=== PATIENT | male | born 1975 | race Two or more races ===

== ENCOUNTER 2024-05-30 12:14 | Inpatient (IN) ==
--- NOTE | 2024-05-30 12:34 | Emergency Department Note ---
Impression & Plan Cellulitis, Acute hyperglycemia ED Provider Note NAME: MYLENE [id number] SHELBIE AGE: 49 SEX: M : 1975 ARRIVES VIA: Walk-In INFORMANT: Patient, ED PROVIDER(S): Reji Trimble DO CHIEF COMPLAINT: Abscess HPI: Patient is a 49-year-old male who was sent to the emergency department from the [facility] for an evaluation of abscess on the left side of his neck. The patient states his symptoms began several days ago. He was seen at the [facility] by the nursing staff there was sent to the emergency department. He is not currently on any antibiotics. The patient describes significant pain especially under his left ear. There was concern this was moving to his face so he was sent to the emergency department. He was not evaluated by the physician at the [facility]. ROS: See above HPI for pertinent positives & negatives. A total of 6 systems reviewed and were otherwise negative. PAST MEDICAL HISTORY: See Below PAST SURGICAL HISTORY: See Below FAMILY HISTORY: See Below SOCIAL HISTORY: See Below HOME MEDICATIONS: See Below ALLERGIES: See Below VITALS: See Below PHYSICAL EXAMINATION: GENERAL: Patient is awake alert in no acute distress patient is resting comfortably and showing no signs of anxiety EYES: The conjunctivae are clear. The pupils are round and reactive. EARS, NOSE, MOUTH AND THROAT: The nose is without any evidence of any deformity. There is no trismus. NECK: There is swelling and fluctuance noted over the left occipital scalp. No drainage was noted. RESPIRATORY: Normal respiratory effort is noted there is no evidence of wheezing rhonchi or rales CARDIOVASCULAR: Regular rate and rhythm noted there no murmurs rubs or gallops normal S1 normal S2. GASTROINTESTINAL: The abdomen is soft. Abdomen is nontender. MUSCULOSKELETAL/EXTREMITIES: There is no evidence of gross deformity full range of motion is noted in the hips and shoulders. SKIN: There is no obvious evidence of any rash. There are no petechiae, pallor or cyanosis noted. NEUROLOGIC: Patient is awake alert and oriented x3. MEDICAL DECISION MAKING: The patient is a 49-year-old male who presented to the emergency department for an evaluation of swelling in the back of his neck. The patient's history and physical exam appear to be consistent with a large abscess. The patient has a history of diabetes. The patient was found have an elevated white blood cell count as well as elevated blood sugar. I discussed patient's laboratory and radiographic studies with him. Preparations were made to do an incision and drainage however the imaging does appear to be more consistent with a phlegmon as well as cellulitis and rather than an abscess. I do not feel that incision and drainage at this time would be beneficial. Given the patient's elevated white blood cell count I do feel that he would be a better candidate for inpatient management. For this reason I discussed this case with the on-call hospitalist group. Triage Nursing notes reviewed. Prior medical records reviewed Vital Signs: reviewed and remarkable for no significant abnormalities Differential diagnosis: Cellulitis, abscess, MRSA infection, DVT, necrotizing fasciitis, dermatitis, drug eruption, allergic reaction, as well as other pathologies. ER treatment provided: See below Diagnostics interpreted by me: ECG: none Cardiac Monitoring: An order was placed for continuous cardiac monitoring. The monitor shows a rate of 91 bpm with sinus rhythm. Laboratory studies: As stated above and show below. Imaging studies: See below. Radiographic imaging was reviewed by myself Consultation(s): Dr. Pitt who is on for the [facility] hospitalist group was notified about the patient. Past Med/Surg History Problem List (Updated 05/30/24 @ 14:41 by Reji Trimble DO) Acute hyperglycemia (Acute) Cellulitis (Acute) Medical History Diabetes Social History Smoking Status: Never smoker Feels Safe at Home: Yes Home Meds Previous Rx's Medication Instructions Recorded amoxicillin 875 mg-potassium 1 tab PO BID #20 tabs 05/30/24 clavulanate 125 mg tablet Results & Data (ED) Vital Signs Vital Signs - 24 hr 05/30/24 12:16 05/30/24 12:27 05/30/24 13:15 Temperature 36.8 C 36.8 C Temperature Source Temporal Artery Scan Oral Pulse Rate 78 98 H Pulse Rate [Apical] 75 Pulse Rhythm Regular Pulse Rhythm [Apical] Regular Pulse Strength [Apical] Normal Respiratory Rate 20 20 20 Respiratory Effort / Characteristics Non-Labored Spontaneous Respiratory Depth Normal Respiratory Pattern Regular Blood Pressure 136/91 Blood Pressure [Right Arm] 125/85 Blood Pressure Mean 106 Blood Pressure Mean [Right Arm] 98 Blood Pressure Position Sitting Blood Pressure Position [Right Arm] Semi-fowlers Pulse Oximetry 98 96 98 Oxygen Delivery Method Room Air Room Air Room Air Sepsis Recent Fever Within 48 Hours No Sepsis New/Unexplained Change in Mental Status N/A Sepsis Action Taken by Nursing No Action Required 05/30/24 13:55 Temperature Temperature Source Pulse Rate 91 H Pulse Rate [Apical] Pulse Rhythm Pulse Rhythm [Apical] Pulse Strength [Apical] Respiratory Rate Respiratory Effort / Characteristics Respiratory Depth Respiratory Pattern Blood Pressure Blood Pressure [Right Arm] Blood Pressure Mean Blood Pressure Mean [Right Arm] Blood Pressure Position Blood Pressure Position [Right Arm] Pulse Oximetry Oxygen Delivery Method Sepsis Recent Fever Within 48 Hours Sepsis New/Unexplained Change in Mental Status Sepsis Action Taken by Group Home Medications Current Medication List: was personally reviewed by me Laboratory Data Attestation: I reviewed the patient's lab results. 05/30/24 13:52 05/30/24 14:16 Lab Results 05/30/24 05/30/24 05/30/24 Range/Units 13:02 13:52 14:16 WBC Cancelled 17.22 H RBC Cancelled 5.04 Hgb Cancelled 13.9 L Hct Cancelled 42.0 MCV Cancelled 83.3 MCH Cancelled 27.6 MCHC Cancelled 33.1 RDW Std Deviation Cancelled 40.4 RDW Coeff of Jody Cancelled 13.3 Plt Count Cancelled 211 MPV Cancelled 10.9 Immature Gran % (Auto) Cancelled 0.5 Neut % (Auto) Cancelled 75.1 Lymph % (Auto) Cancelled 13.3 Miller % (Auto) Cancelled 9.2 Eos % (Auto) Cancelled 1.6 Baso % (Auto) Cancelled 0.3 Neut # (Auto) Cancelled 12.93 H Lymph # (Auto) Cancelled 2.29 Miller # (Auto) Cancelled 1.59 H Eos # (Auto) Cancelled 0.28 Baso # (Auto) Cancelled 0.05 Immature Gran # (Auto) Cancelled 0.08 Absolute Nucleated RBC Cancelled Nucleated RBC % (auto) Cancelled Neutrophils % (Manual) Cancelled Band Neutrophils % Cancelled Lymphocytes % (Manual) Cancelled Prolymphocyte % Cancelled Reactive Lymphs % (Man) Cancelled Monocytes % (Manual) Cancelled Eosinophils % (Manual) Cancelled Basophils % (Manual) Cancelled Metamyelocytes % (Man) Cancelled Myelocytes % (Man) Cancelled Promyelocytes % (Man) Cancelled Blast Cells % (Manual) Cancelled Plasma Cell % (Manual) Cancelled Other Cells % Cancelled Nucleated RBC % Cancelled Neutrophils # (Manual) Cancelled Band Neutrophils # Cancelled Total Absolute Neuts Cancelled Lymphocytes # (Manual) Cancelled Prolymphocyte # Cancelled Reactive Lymphs # Cancelled Total Abs Lymphocytes Cancelled Monocytes # (Manual) Cancelled Eosinophils # (Manual) Cancelled Basophils # (Manual) Cancelled Metamyelocytes # (Man) Cancelled Myelocytes # (Manual) Cancelled Promyelocytes # (Man) Cancelled Blast Cells # (Man) Cancelled Plasma Cell # (Manual) Cancelled Other Cells # Cancelled Nucleated RBCs # (Man) Cancelled Hypersegmented Neuts Cancelled Hyposegmented Neuts Cancelled Hypogranular Neuts Cancelled Large Granular Lymphs Cancelled # Lrg Granular Lymphs Cancelled Hairy Cells Cancelled Smudge Cells Cancelled Toxic Granulation Cancelled Toxic Vacuolation Cancelled Dohle Bodies Cancelled Abhishek Rods Cancelled Platelet Estimate Cancelled Hypogranular Platelets Cancelled Giant Platelets Cancelled Platelet Satelliting Cancelled RBC Morphology Cancelled Polychromasia Cancelled Hypochromasia Cancelled Poikilocytosis Cancelled Basophilic Stippling Cancelled Anisocytosis Cancelled Microcytosis Cancelled Macrocytosis Cancelled Spherocytes Cancelled Pappenheimer Bodies Cancelled Sickle Cells Cancelled Target Cells Cancelled Tear Drop Cells Cancelled Ovalocytes Cancelled Stomatocytes Cancelled [place] Bodies Cancelled Echinocytes Cancelled Acanthocytes (Spur) Cancelled Rouleaux Cancelled RBC Agglutinates Cancelled Schistocytes Cancelled Sezary Cell Cancelled Sodium 133 L (136-145) mmol/L Potassium TNP 4.8 Chloride 102 (98-107) mmol/L Carbon Dioxide 22 (21-32) mmol/L Anion Gap 9 (3-11) BUN 16 (6-23) mg/dl Creatinine 0.75 (0.6-1.4) mg/dl Est Cr Clr Drug Dosing 135.1 ml/min eGFR 109.26 BUN/Creatinine Ratio 21.3 H (10-20) Glucose 340 H* (70-99(Fasting)) mg/dl Calcium 8.7 (8.6-10.3) mg/dl Total Bilirubin 0.8 (0.2-1.0) mg/dl AST TNP 17 ALT 21 (7-52) U/L Alkaline Phosphatase 52 (34-104) U/L Total Protein 6.8 (6.0-8.3) gm/dl Albumin 3.6 (3.4-5.0) gm/dl Globulin 3.2 (2.5-4.0) gm/dl Albumin/Globulin Ratio 1.1 (0.9-2) Blood Parasites ID Cancelled Administered Medications Morphine Sulfate (Morphine Sulfate 4 Mg/Ml 1 Ml Carp\Vial) 4 mg IV Q15M PRN PRN Reason: Pain Stop: 06/13/24 12:26 Last Admin: 05/30/24 13:18 Dose: 4 mg Documented By: MO Discontinued Medications Ampicillin Sodium/Sulbactam Sodium (Unasyn) 3,000 mg in 100 mls @ 200 mls/hr IV NOW STA Stop: 05/30/24 12:56 Last Admin: 05/30/24 13:53 Dose: 200 mls/hr Documented By: MO Ondansetron HCl (Ondansetron Inj 2 Mg/Ml 2 Ml Vial) 4 mg IV NOW STA Stop: 05/30/24 12:28 Last Admin: 05/30/24 13:18 Dose: 4 mg Documented By: MO Imaging Data Attestation: I personally reviewed and interpreted this imaging study as follows: My Impression: CT soft tissue neck was done without contrast. My interpretation is significant swelling in the left occipital region, no air-fluid level was noted, final report below. Radiologist's Impression: Soft Tissue Neck CT 05/30/24 12:27 CT soft tissue neck wo con HISTORY: 49 years-old Male left posterior swelling acute pain and swelling of the neck COMPARISON: None TECHNIQUE: Multiple axial CT images of the soft tissues of the neck were obtained without IV contrast A dose lowering technique was used consistent with the principals of DEREJE. FINDINGS: Limited exam without IV contrast. Lung apices are clear. No pneumothorax. Subcentimeter cervical chain and left supraclavicular lymph nodes measure up to 7 mm, likely reactive. There is moderate subcutaneous edema and skin thickening within the left posterior mid neck with focal area of probable phlegmon measuring 6 mm image 253. No discrete abscess. No intramuscular extension. Multilevel changes of the cervical spine. Patent airway. Moderate polypoid mucosal thickening within the left maxillary sinus. Mastoid air cells are clear. The imaged intracranial structures demonstrate no acute abnormality. IMPRESSION: 1. Prominent cellulitis with probable phlegmon within the left posterior neck. No abscess identified at this time. 2. Subcentimeter cervical chain and supraclavicular lymph nodes are likely reactive. Attention on follow-up recommended. 3. Moderate polypoid mucosal thickening of the left maxillary sinus. ACT 112: Negative or not required by law. The above report was generated using voice recognition software. It may contain grammatical, syntax or spelling errors. Electronically signed by: Yunior Dempsey M.D. 05/30/2024 2:34 PM Discharge Plan Visit Data Chief Complaint: Skin Problem Stated Complaint: ABCESS ON NECK ED Provider: Reji Trimble Discharge Problem: Cellulitis, Acute hyperglycemia Patient Disposition: Being Evaluated by Hospitalist Forms Stand Alone Forms: Risk Ident Prescriptions Prescriptions: New amoxicillin-pot clavulanate 875-125 mg tablet 1 tab PO BID Qty: 20 0RF Referrals Referrals: PCP,NO [Physician] - Discharge Problem: Cellulitis Qualifiers: Site of cellulitis: neck Qualified Code(s): L03.221 - Cellulitis of neck
[2024-05-30] MEDS: ONDANSETRON INJ 2 MG/ML 2 ML VIAL IV STA (13:18)
[2024-05-30] MEDS: MoRPHine SULFATE 4 MG/ML 1 ML CARP\\VIAL IV PRN (13:18)
[2024-05-30] MEDS: AMPICILLIN/SULBACTAM SOD 3,000 MG/100 ML BAG IV STA (13:53)
[2024-05-30 13:57] LABS: Alanine Aminotransferase 21 U/L (7-52); Albumin Globulin Ratio 1.1 (0.9-2); Albumin Level 3.6 gm/dl (3.4-5.0); Alkaline Phosphatase 52 U/L (34-104); Anion Gap 9 (3-11); BUN Creatinine Ratio 21.3 (10-20); Bilirubin,Total 0.8 mg/dl (0.2-1.0); Blood Urea Nitrogen 16 mg/dl (6-23); Calcium 8.7 mg/dl (8.6-10.3); Carbon Dioxide 22 mmol/L (21-32); Chloride 102 mmol/L (98-107); Creatinine Clr Calc Pharmacy 135.1 ml/min; Globulin 3.2 gm/dl (2.5-4.0); Glucose 340 mg/dl (70-99(Fasting)); Sodium 133 mmol/L (136-145); Total Protein 6.8 gm/dl (6.0-8.3)
[2024-05-30 14:10] LABS: Basophils # (auto) 0.05 K/uL (0.00-0.20); Basophils % (auto) 0.3 %; Eosinophils # (auto) 0.28 K/uL (0.00-0.50); Eosinophils % (auto) 1.6 %; Hemoglobin 13.9 g/dl (14.0-18.0); Immature Granulocytes # (auto) 0.08 K/uL (0.01-0.20); Immature Granulocytes % (auto) 0.5 %; Lymphocytes # (auto) 2.29 K/uL (1.20-3.40); Lymphocytes % (auto) 13.3 %; Mean Corpuscular Hemoglobin 27.6 pg (25.0-34.0); Mean Corpuscular Hgb Conc 33.1 g/dL (32.0-36.0); Mean Corpuscular Volume 83.3 fL (80.0-100.0); Mean Platelet Volume 10.9 fL (9.4-12.4); Monocytes # (auto) 1.59 K/uL (0.11-0.59); Monocytes % (auto) 9.2 %; Neutrophils # (auto) 12.93 K/uL (1.40-6.50); Neutrophils % (auto) 75.1 %; Platelet Count 211 K/uL (130-400); RDW Coefficient of Variation 13.3 % (11.5-14.5); RDW Standard Deviation 40.4 fL (36.4-46.3); Red Blood Count 5.04 M/uL (4.70-6.10); White Blood Count 17.22 K/ul (4.8-10.8)
--- NOTE | 2024-05-30 14:35 | CT Scan Report ---
CT soft tissue neck wo con HISTORY: 49 years-old Male left posterior swelling acute pain and swelling of the neck COMPARISON: None TECHNIQUE: Multiple axial CT images of the soft tissues of the neck were obtained without IV contrast A dose lowering technique was used consistent with the principals of DEREJE. FINDINGS: Limited exam without IV contrast. Lung apices are clear. No pneumothorax. Subcentimeter cervical kwasi n and left supraclavicular lymph nodes measure up to 7 mm, likely reactive. There is moderate subcuta neous edema and skin thickening within the left posterior mid neck with focal area of probable phlegm on measuring 6 mm image 253. No discrete abscess. No intramuscular extension. Multilevel changes of the cervical spine. Patent airway. Moderate polypoid mucosal thickening within the left maxillary sinus. Mastoid air cells are clear. The imaged intracranial structures demonstrate no acute abnormality. IMPRESSION: 1. Prominent cellulitis with probable phlegmon within the left posterior neck. No abscess identified at this time. 2. Subcentimeter cervical chain and supraclavicular lymph nodes are likely reactive. Attention on fol low-up recommended. 3. Moderate polypoid mucosal thickening of the left maxillary sinus. ACT 112: Negative or not required by law. The above report was generated using voice recognition software. It may contain grammatical, syntax o r spelling errors. Electronically signed by: Yunior Dempsey M.D. 05/30/2024 2:34 PM
[2024-05-30] MEDS ORDERED: VANCOMYCIN HCL 2,250 MG in DEXTROSE 5% 500 ML IV ONE (14:44)
[2024-05-30] MEDS ORDERED: VANCOMYCIN CONSULT ACTIVE PRN (14:44)
[2024-05-30 14:47] LABS: Potassium 4.8 mmol/L (3.5-5.1)
[2024-05-30] MEDS: LIDOCAINE 1% LOCAL 20 ML VIAL INFIL ONE (15:13)
--- NOTE | 2024-05-30 15:32 | History & Physical Report ---
Date of Service May 30, 2024 Assessment & Plan (1) Cellulitis: (2) Sepsis: (3) Type 2 diabetes mellitus: (4) HTN (hypertension): (5) HLD (hyperlipidemia): (6) CAD (coronary artery disease): (7) Acute hyperglycemia: Plan 49 year old male with h/o HTN, HLD, CAD, and type 2 diabetes presenting with painful swelling of left posterior neck. #Sepsis/Cellulitis: WBC count 17, HR 98 on admission with presumed source being skin/soft tissue infection. Afebrile, hemodynamically stable. Blood cultures pending CT neck soft tissue with prominent cellulitis with probable phlegmon within the left posterior neck. No abscess identified. Continue IV Vancomycin. MRSA nasal swab pending - if negative, consider transition to Unasyn. If failing to improve with IV antibiotics, consider repeat imaging to assess for drainable lesion. Scheduled Tylenol 1g TID, PRN IV morphine for pain control AM labs: CBC, BMP #T2DM: BSG 340 on admission - will recheck BSG and correct accordingly with one time dose of Novolog Blood sugar check ACHS Hold Metformin Lantus 21 units BID Sliding scale Novolog Chronic Stable Problems: HLD: continue home rosuvastatin HTN: continue home Lisinopril CAD: continue home aspirin, Eliquis. Pt reports Eliquis was started after stent placement, rationale unclear. Dispo: admit for obs to med-surg FEN/GI: HH,CC diet VTE ppx: Eliquis Full Code History of Present Illness Primary Care Provider: CASS Harp 49 year old male with h/o HTN, HLD, CAD, and type 2 diabetes presenting with painful swelling of left posterior neck. First noticed small, focal area of swelling last , 05/25. Since then, lesion has progressively enlarged and has also become more painful. Patient notes that at one point, lesion spontaneously drained a small amount of blood but no pus noted. Patient was seen by nurse at [facility] this morning, recommended evaluation in ED. Denies antecedent open skin lesion. Denies fevers/chills. Denies difficulty swallowing. ED Course: WBC count 17, HR [address] on admission. Lactate negative. CT neck soft tissue with prominent cellulitis with probable phlegmon within the left posterior neck. No abscess identified. Patient given one dose of Unasyn. Allergies Allergy/AdvReac Type Severity Reaction Status Date / Time shellfish derived Allergy Hives Verified 05/30/24 16:56 Home Medications Medication Instructions Recorded Confirmed Type amoxicillin 875 mg-potassium 1 tab PO BID #20 tabs 05/30/24 Rx clavulanate 125 mg tablet apixaban 5 mg tablet (Eliquis) 5 mg PO BID 05/30/24 05/30/24 History aspirin 81 mg tablet 81 mg PO DAILY 05/30/24 05/30/24 History celecoxib 200 mg capsule 200 mg PO BID 05/30/24 05/30/24 History lisinopril 2.5 mg tablet 2.5 mg PO DAILY 05/30/24 05/30/24 History metformin 500 mg tablet 500 mg PO BID 05/30/24 05/30/24 History rosuvastatin 5 mg tablet 5 mg PO DAILY 05/30/24 05/30/24 History Past Med/Surg History Problem List (Updated 05/30/24 @ 16:56 by Karsten Chris DO) Sepsis Acute hyperglycemia (Acute) Cellulitis (Acute) Medical History (Updated 05/30/24 @ 16:56 by Karsten Chris DO) CAD (coronary artery disease) HLD (hyperlipidemia) HTN (hypertension) Type 2 diabetes mellitus Diabetes Social History Smoking Status: Never smoker Hx Alcohol Use: No Hx Substance Use: No Preferred Language: Lao Communication Ability: 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 No acute distress Cardiac: Regular rate and rhythm, no murmurs appreciated Respiratory: Lungs clear to auscultation bilaterally, No increased work of breathing Skin: Left posterolateral neck with mildly erythematous, well circumscribed area of swelling extending from angle of mandible to lateral border of cervical paraspinals. Very tender to palpation, small scab at site of previous drainage but no active drainage. Results & Data Results & Data Vital Signs (Past 12 Hours) Vital Signs Temp Pulse Pulse Resp BP BP Pulse Ox 05/30/24 15:00 36.7 C 90 16 138/99 98 05/30/24 13:55 91 H 05/30/24 13:15 36.8 C 75 20 125/85 98 05/30/24 12:27 98 H 20 96 05/30/24 12:16 36.8 C 78 20 136/91 98 O2 Del Method 05/30/24 15:00 Room Air 05/30/24 13:55 05/30/24 13:15 Room Air 05/30/24 12:27 Room Air 05/30/24 12:16 Room Air Supervising Physician Co-Signing Physician Notes I personally saw and examined the patient. I independently reviewed the labs, EKG, imaging, problem list, medication list, past medical history and family history. I verified all van points and agree with resident physician Dr Karsten Chris DO with the following exceptions and/or additions: 49 year old male presents to the ER with fever, chills left sided neck erythema, swelling and pain. O/E HS RRR, no murmurs, Chest CTAB, Abdo SNT, erythema and swelling on left side of neck without fluctuant area A/P Sepsis/cellulitis - Lactate 1.5, no hypotension therefore does not meet criteria for 30ml/kg IV fluids, Continue Vancomycin and Unasyn Resident Activity Tracking Resident Involvement: Resident Care Provided Care Provided: Adult Hospital Medicine (1) Cellulitis Site of cellulitis: neck Qualified Code(s): L03.221 - Cellulitis of neck
[2024-05-30] MEDS: VANCOMYCIN HCL 2,250 MG in SODIUM CHLORIDE 0.9% 500 ML IV STA (15:42)
[2024-05-30] MEDS ORDERED: DEXTROSE 50% 50 ML SYRINGE IV PRN (18:26)
[2024-05-30] MEDS ORDERED: GLUCOSE 40% GEL 15 GM TUBE PO PRN (18:26)
[2024-05-30] MEDS ORDERED: GLUCOSE 10 TAB/TUBE PO PRN (18:26)
[2024-05-30] MEDS ORDERED: CARBOHYDRATES FOR HYPOGLYCEMIA PO PRN (18:26)
[2024-05-30] MEDS ORDERED: GLUCAGON FOR INJ 1 MG VIAL SQ PRN (18:26)
[2024-05-30] MEDS ORDERED: ALUMINUM/MAGNESIUM SUSP 30 ML UDC PO PRN (18:26)
[2024-05-30] MEDS: INSULIN ASPART PER UNIT CHARGE SC STA (19:19)
[2024-05-30] MEDS: MoRPHine SULFATE 2 MG/ML CARP IV PRN (19:25)
[2024-05-30] MEDS: INSULIN ASPART PER UNIT CHARGE SC SCH (19:27)
[2024-05-30] MEDS: ACETAMINOPHEN 500 MG TAB PO SCH (20:18)
[2024-05-30] MEDS: APIXABAN 5 MG TABLET PO SCH (20:18)
[2024-05-30] MEDS ORDERED: Nursing to Pharmacy Communication SCH (21:30)
[2024-05-30] MEDS: Patient's ALLERGY Info needs ENTERED SCH (22:22)
[2024-05-30] MEDS: LANTUS PER UNIT CHARGE SQ SCH (23:01)
[2024-05-30] MEDS: VANCOMYCIN 1,250mg in D5W 250mL (Use w/ NSS Shortage) IV SCH (23:39)
--- NOTE | 2024-05-31 07:25 | Hospitalist Progress Note ---
Date of Service May 31, 2024 Assessment & Plan (1) Sepsis: Plan: 49 year old male with h/o HTN, HLD, CAD, and type 2 diabetes presenting with painful swelling of left posterior neck. Sepsis/Cellulitis present on admission: source being skin/soft tissue infection. CT neck soft tissue with prominent cellulitis with probable phlegmon within the left posterior neck. No abscess identified. Continue IV Vancomycin. exam is tense and painful, pt is diaphoretic, blood cx negative, will re image 06/01/24 (2) Type 2 diabetes mellitus: Plan: T2DM: uncontrolled on admission Blood sugar check ACHS Hold Metformin Lantus 25 units BID tighten Sliding scale Novolog (3) CAD (coronary artery disease): Plan: continue home aspirin, Eliquis. Pt reports Eliquis was started after stent placement, rationale unclear. persistently tachycardic, ecg is sinus tach, tsh reviewed and normal, mag is low will augment Plan HLD: continue home rosuvastatin HTN: continue home Lisinopril CAD: Dispo: admit for obs to med-surg FEN/GI: HH,CC diet VTE ppx: Eliquis Full Code Admission and Anticipated Discharge Date Admission Date: May 30, 2024 Results & Data Results & Data Vital Signs (Past 12 Hours) Vital Signs Temp Pulse BP 05/30/24 21:36 99.1 F 128 H 115/76 Laboratory Results review cbc review poc glucose adjusted insulin PG Care Time/CCT Total # of Minutes Spent Total Time Spent with Patient: Total time spent is greater than 50% in coordination of care (as documented) at patient's floor/unit and/or counseling patient: Coding Level of Care Code 15841 SUB INP/OBS CARE 3/50MIN Diagnoses Sepsis A41.9 Type 2 diabetes mellitus E11.9 CAD (coronary artery disease) I25.10
[2024-05-31] MEDS: ASPIRIN 81 MG ECTAB PO SCH (07:38)
[2024-05-31 07:40] LABS: BUN Creatinine Ratio 13.4 (10-20); Calcium 8.7 mg/dl (8.6-10.3); Creatinine Clr Calc Pharmacy 104.4 ml/min; Potassium 4.2 mmol/L (3.5-5.1)
[2024-05-31 07:42] LABS: Hematocrit (blood only) 41.7 % (42.0-52.0); Hemoglobin 13.9 g/dl (14.0-18.0); Mean Corpuscular Hemoglobin 27.6 pg (25.0-34.0); Mean Corpuscular Hgb Conc 33.3 g/dL (32.0-36.0); Mean Corpuscular Volume 82.9 fL (80.0-100.0); Mean Platelet Volume 10.8 fL (9.4-12.4); Platelet Count 243 K/uL (130-400); RDW Coefficient of Variation 13.2 % (11.5-14.5); RDW Standard Deviation 40.1 fL (36.4-46.3); Red Blood Count 5.03 M/uL (4.70-6.10); White Blood Count 19.94 K/ul (4.8-10.8)
[2024-05-31 08:08] LABS: Magnesium 1.6 mg/dl (1.7-2.4)
[2024-05-31 08:23] LABS: Thyroid Stimulating Hormone 0.841 uIu/ml (0.300-4.500)
[2024-05-31] MEDS: ROSUVASTATIN CALCIUM 5 MG TAB PO SCH (10:48)
[2024-05-31] MEDS: lisinopril 2.5 MG TAB PO SCH (10:48)
--- NOTE | 2024-05-31 10:57 | Pharmacy Report ---
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 * Pertinent microbiologic data includes: Negative MRSA Nasal Swab, blood cx pending Plan Vancomycin * Loading dose: 2250 mg IV x 1 * Maintenance dose: 1250 mg IV every 8 hours * Regimen is predicted to achieve target AUC/RILEY of 400-600 mg/L.hr * May need to reduce dose once at steady state, as predicted AUC slightly above target * Trough level ordered for tomorrow morning, which should reflect steady state Pharmacy will continue to follow and will adjust dose/frequency as necessary. Thank you. Pharmacy has transitioned to AUC monitoring for vancomycin. AUC/RILEY is the preferred PK/PD target and is associated with decreased risk of nephrotoxicity compared to traditional trough targets.
--- NOTE | 2024-05-31 11:55 | Billing Data ---
Date of Service May 30, 2024 Coding Level of Care Code 16718 INT INP/OBS CARE
--- NOTE | 2024-05-31 15:38 | Electrocardiogram Report ---
Test Reason : Blood Pressure : */* mmHG Vent. Rate : 107 BPM Atrial Rate : 107 BPM P-R Int : 122 ms QRS Dur : 72 ms QT Int : 318 ms P-R-T Axes : 30 3 79 degrees QTcB Int : 424 ms Sinus tachycardia Possible Left atrial enlargement Inferior infarct , age undetermined Anterolateral infarct , age undetermined Abnormal ECG No previous ECGs available Confirmed by Reji Maza ([id number]) on 05/31/2024 3:38:30 PM Referred By: Loyd ODELL Confirmed By: Reji Maza
[2024-05-31] MEDS: ONDANSETRON INJ 2 MG/ML 2 ML VIAL IV STA (17:24)
[2024-05-31] MEDS: MAGNESIUM SULFATE / D5W 1 GM/100 ML BAG IV SCH (17:24)
[2024-05-31] MEDS ORDERED: ONDANSETRON INJ 2 MG/ML 2 ML VIAL IV PRN (18:46)
[2024-05-31] MEDS: CEFEPIME 2000MG 2,000 MG/20 ML SYR IV SCH (20:20)
[2024-05-31] MEDS: LANTUS PER UNIT CHARGE SQ SCH (20:27)
[2024-06-01 07:41] LABS: Hematocrit (blood only) 42.2 % (42.0-52.0); Hemoglobin 14.1 g/dl (14.0-18.0); Mean Corpuscular Hemoglobin 27.4 pg (25.0-34.0); Mean Corpuscular Hgb Conc 33.4 g/dL (32.0-36.0); Mean Corpuscular Volume 82.1 fL (80.0-100.0); Mean Platelet Volume 10.2 fL (9.4-12.4); Platelet Count 269 K/uL (130-400); RDW Coefficient of Variation 13.1 % (11.5-14.5); RDW Standard Deviation 39.5 fL (36.4-46.3); Red Blood Count 5.14 M/uL (4.70-6.10); White Blood Count 18.29 K/ul (4.8-10.8)
[2024-06-01 07:59] LABS: BUN Creatinine Ratio 18.9 (10-20); C Reactive Protein 29.54 mg/dl (0-0.5); Creatinine Clr Calc Pharmacy 106.6 ml/min; Potassium 4.4 mmol/L (3.5-5.1)
[2024-06-01] MEDS: VANCOMYCIN LEVEL ONE (08:54)
[2024-06-01] MEDS: VANCOMYCIN IV SCH (10:20)
[2024-06-01] MEDS: D5W IV SCH (10:20)
--- NOTE | 2024-06-01 10:44 | CT Scan Report ---
CT soft tissue neck wo con HISTORY: 49 years-old Male eval for organized abscess acute neck pain with dysphasia COMPARISON: 05/30/2024 TECHNIQUE: Multiple axial CT images of the soft tissues of the neck were obtained without IV contrast . A dose lowering technique was used consistent with the principals of DEREJE. FINDINGS: Limited exam without IV contrast. Lung apices are clear. No pneumothorax. Subcentimeter cervical kwasi n and left supraclavicular lymph nodes measure up to 7 mm, likely reactive. There is moderate subcuta neous edema and skin thickening within the left posterior mid neck with focal area of probable phlegm on measuring approximately 7.5 x 2.8 cm, previously 6.0 x 2.7 cm. No drainable abscess. No intramuscu lar extension. Progressive subcutaneous edema extension into the left supraclavicular tissues. Multilevel degenerative changes of the cervical spine. Patent airway. Moderate polypoid mucosal thick ening within the left maxillary sinus. Mastoid air cells are clear. The imaged intracranial structure s demonstrate no acute abnormality IMPRESSION: 1. Progressive cellulitis with mild worsening of the phlegmon within the left posterior neck. No absc ess identified at this time. Rather than serial CT examinations for follow-up, ultrasound is recommen ded to assess for possible future development of an abscess. 2. Subcentimeter cervical chain and supraclavicular lymph nodes are likely reactive. Attention on fol low-up recommended. 3. Moderate polypoid mucosal thickening of the left maxillary sinus. ACT 112: Negative or not required by law. The above report was generated using voice recognition software. It may contain grammatical, syntax o r spelling errors. Electronically signed by: Yunior Dempsey M.D. 06/01/2024 10:43 AM
--- NOTE | 2024-06-01 14:51 | Pharmacy Report ---
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 * Pertinent microbiologic data includes: Negative MRSA Nasal Swab, blood cx pending Plan Vancomycin * Maintenance dose: Increase to vancomycin 2250mg IV q12h * q12h regimen selected rather than q8h regimen in an effort to conserve IV fluids in the setting of shortage * Regimen is predicted to achieve target AUC/RILEY of 400-600 mg/L.hr * Will check another vanc level in 1-2 days if pt remains hospitalized Pharmacy will continue to follow and will adjust dose/frequency as necessary. Thank you. Pharmacy has transitioned to AUC monitoring for vancomycin. AUC/RILEY is the preferred PK/PD target and is associated with decreased risk of nephrotoxicity compared to traditional trough targets.
--- NOTE | 2024-06-01 15:47 | Hospitalist Progress Note ---
Date of Service June 01, 2024 Assessment & Plan (1) Sepsis: Plan: 49 year old male with h/o HTN, HLD, CAD, and type 2 diabetes presenting with painful swelling of left posterior neck. Sepsis/Cellulitis present on admission: source being skin/soft tissue infection. CT neck soft tissue with prominent cellulitis with probable phlegmon within the left posterior neck. No abscess identified. Continue IV Vancomycin/cefepime. exam is tense and painful, ourulnece cultured, pt is diaphoretic, blood cx negative, re image 06/01/24 phlegmon npo hold anticoagulation ENT consult on 06/02/24 (2) Type 2 diabetes mellitus: Plan: T2DM: uncontrolled state continues Blood sugar check ACHS Hold Metformin Lantus increase to 30 units BID tighten Sliding scale Novolog, one dose of NPH (3) CAD (coronary artery disease): Plan: continue home aspirin, Eliquis. Pt reports Eliquis was started after stent placement, rationale unclear. persistently tachycardic, ecg is sinus tach, tsh reviewed and normal, mag is low will augment Plan HLD: continue home rosuvastatin HTN: continue home Lisinopril CAD: Dispo: admit for obs to med-surg FEN/GI: HH,CC diet VTE ppx: Eliquis Full Code Admission and Anticipated Discharge Date Admission Date: May 30, 2024 Subjective pt is not feeling well, swelling has pointed and is draining a thick white yellow non malodorous material, this was cultured this maybe sebaceous cyst although is high on neck near hairline Physical Exam Physical Exam: firm dense tense area on left posterior neck, high up to start of hair line expressed purulence Results & Data Results & Data Vital Signs (Past 12 Hours) Vital Signs Temp Pulse Resp BP BP Pulse Ox O2 Del Method 06/01/24 14:43 98.6 F 108 H 17 143/84 H 94 Room Air 06/01/24 08:30 112 H 18 112/78 93 Room Air 06/01/24 07:19 99.0 F 103 H 17 124/84 94 Room Air Laboratory Results review cbc review chemistry review poc glucose, poor control PG Care Time/CCT Total # of Minutes Spent Total Time Spent with Patient: Total time spent is greater than 50% in coordination of care (as documented) at patient's floor/unit and/or counseling patient: Coding Level of Care Code 70988 SUB INP/OBS CARE 50MIN Diagnoses Sepsis A41.9 Type 2 diabetes mellitus E11.9 CAD (coronary artery disease) I25.10
[2024-06-01] MEDS: MAGNESIUM HYDROXIDE SUSP 30 ML UDC PO PRN (17:05)
[2024-06-01] MEDS: NovoLIN-N (NPH) PER UNIT CHARGE SQ ONE (17:06)
[2024-06-01] MEDS: POLYETHYLENE (MIRALAX) 17 GM PACK PO PRN (21:23)
[2024-06-02 07:23] LABS: C Reactive Protein 17.33 mg/dl (0-0.5)
[2024-06-02 11:30] LABS: Creatinine Clr Calc Pharmacy 117.8 ml/min
--- NOTE | 2024-06-02 16:51 | Hospitalist Progress Note ---
Date of Service June 02, 2024 Assessment & Plan (1) Sepsis: Plan: 49 year old male with h/o HTN, HLD, CAD, and type 2 diabetes presenting with painful swelling of left posterior neck. Sepsis/Cellulitis present on admission: source being skin/soft tissue infection. CT neck soft tissue with prominent cellulitis with probable phlegmon within the left posterior neck. No abscess identified. Continue IV Vancomycin/cefepime. exam is tense and painful, purulence cultured inintial gram stain is Gr +, blood cx negative, re image 06/01/24 phlegmon npo hold anticoagulation ENT consult on 06/02/24 (2) Type 2 diabetes mellitus: Plan: T2DM: uncontrolled state continues Blood sugar check ACHS Holding Metformin Lantus increase to 30 units BID tighten Sliding scale Novolog, (3) CAD (coronary artery disease): Plan: continue home aspirin, Eliquis. Pt reports Eliquis was started after stent placement, rationale unclear. persistently tachycardic, ecg is sinus tach, tsh reviewed and normal, mag is low will augment Plan HLD: continue home rosuvastatin HTN: continue home Lisinopril VTE ppx: Eliquis Full Code Admission and Anticipated Discharge Date Admission Date: June 01, 2024 Subjective pt with drainage from neck abscess, spoke to ENT, no immediate need for surgery as is improving, will continue to follow pt feels less ill but still with significant neck pain and swelling Physical Exam Physical Exam: firm dense tense area on left posterior neck, high up to start of hair line expressed purulence continues less reddened and swollen Results & Data Results & Data Vital Signs (Past 12 Hours) Vital Signs Temp Pulse Resp BP BP Pulse Ox O2 Del Method 06/02/24 15:28 97.9 F 101 H 18 121/86 94 Room Air 06/02/24 07:22 99.0 F 98 H 18 129/83 95 Room Air Laboratory Results review Cr review poc glucose-> still poor control will tighten scale PG Care Time/CCT Total # of Minutes Spent Total Time Spent with Patient: Total time spent is greater than 50% in coordination of care (as documented) at patient's floor/unit and/or counseling patient: Coding Level of Care Code 49109 SUB INP/OBS CARE 3/50MIN Diagnoses Sepsis A41.9 Type 2 diabetes mellitus E11.9 CAD (coronary artery disease) I25.10
[2024-06-02] MEDS: LANTUS PER UNIT CHARGE SQ SCH (21:01)
[2024-06-03 08:00] LABS: Hematocrit (blood only) 44.6 % (42.0-52.0); Hemoglobin 14.7 g/dl (14.0-18.0); Mean Corpuscular Hemoglobin 27.4 pg (25.0-34.0); Mean Corpuscular Volume 83.1 fL (80.0-100.0); Mean Platelet Volume 9.6 fL (9.4-12.4); Platelet Count 305 K/uL (130-400); RDW Coefficient of Variation 13.2 % (11.5-14.5); Red Blood Count 5.37 M/uL (4.70-6.10); White Blood Count 12.02 K/ul (4.8-10.8)
[2024-06-03] MEDS: VANCOMYCIN LEVEL ONE (08:07)
[2024-06-03 08:20] LABS: BUN Creatinine Ratio 27.3 (10-20); C Reactive Protein 9.34 mg/dl (0-0.5); Calcium 9.2 mg/dl (8.6-10.3); Creatinine Clr Calc Pharmacy 153.5 ml/min; Potassium 4.4 mmol/L (3.5-5.1)
[2024-06-03] MEDS: LANTUS PER UNIT CHARGE SQ SCH (09:05)
--- NOTE | 2024-06-03 09:28 | Pharmacy Report ---
Pharmacy PK ABX Note - Date of Service June 03, 2024 - Assessment and Plan Assessment 06/03: * Continues on vancomycin/cefepime (day#5 vancomycin). Renal function stable. 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 * Pertinent microbiologic data includes: Negative MRSA Nasal Swab, blood cx pending Plan Vancomycin * Current regimen: vancomycin 2250mg IV q12h * Trough level this AM (~12h level), 15.4mcg/mL. Predicted to achieve ssAUC 531mg/L.hr- therapeutic. * Continue current regimen - repeat level in ~ 48h Pharmacy will continue to follow and will adjust dose/frequency as necessary. Thank you. Pharmacy has transitioned to AUC monitoring for vancomycin. AUC/RILEY is the preferred PK/PD target and is associated with decreased risk of nephrotoxicity compared to traditional trough targets.
--- NOTE | 2024-06-03 16:39 | Hospitalist Progress Note ---
Date of Service June 03, 2024 Assessment & Plan (1) Sepsis: Plan: 49 year old male with h/o HTN, HLD, CAD, and type 2 diabetes presenting with painful swelling of left posterior neck. Sepsis/Cellulitis present on admission: source being skin/soft tissue infection. CT neck soft tissue with prominent cellulitis with probable phlegmon within the left posterior neck. No abscess identified. Continue IV Vancomycin/cefepime. exam is less tense and painful, purulence cultured initial gram stain is Gr + mrsa sensitivities pending , blood cx negative, re image 06/01/24 phlegmon no abscess infiltration of vancomycin, elevated ice and follow left arm (2) Type 2 diabetes mellitus: Plan: T2DM: uncontrolled state continues Blood sugar check ACHS Holding Metformin Lantus increase to 30 units BID tighten Sliding scale Novolog, (3) CAD (coronary artery disease): Plan: continue home aspirin, Eliquis. Pt reports Eliquis was started after stent placement, rationale unclear. persistently tachycardic, ecg is sinus tach, tsh reviewed and normal, mag is low will augment Plan HLD: continue home rosuvastatin HTN: continue home Lisinopril VTE ppx: Eliquis Full Code Admission and Anticipated Discharge Date Admission Date: June 01, 2024 Subjective pt with drainage from neck abscess, improving did have vancomycin infiltration to arm initial culture shows MRSA pt feels less ill but still with lessening neck pain and swelling Physical Exam Physical Exam: firm dense tense area on left posterior neck, high up to start of hair line expressed purulence continues less reddened and swollen arm with infiltration swelling, not red or with phlebitis, decided not to use hyaluronidase as area is very large to accommodate sc injections Results & Data Results & Data Vital Signs (Past 12 Hours) Vital Signs Temp Pulse Resp BP BP Pulse Ox O2 Del Method 06/03/24 16:30 97.5 F L 109 H 16 103/76 94 Room Air 06/03/24 07:58 98.2 F 99 H 16 136/87 94 Room Air Laboratory Results review cbc review chemistry crp coming down also PG Care Time/CCT Total # of Minutes Spent Total Time Spent with Patient: Total time spent is greater than 50% in coordination of care (as documented) at patient's floor/unit and/or counseling patient: Coding Level of Care Code 12993 SUB INP/OBS CARE 2/35MIN Diagnoses Sepsis A41.9 Type 2 diabetes mellitus E11.9 CAD (coronary artery disease) I25.10
[2024-06-03] MEDS: APIXABAN 5 MG TABLET PO SCH (20:28)
[2024-06-04 06:28] LABS: Hematocrit (blood only) 43.9 % (42.0-52.0); Hemoglobin 14.2 g/dl (14.0-18.0); Mean Corpuscular Hemoglobin 27.1 pg (25.0-34.0); Mean Corpuscular Hgb Conc 32.3 g/dL (32.0-36.0); Mean Corpuscular Volume 83.8 fL (80.0-100.0); Mean Platelet Volume 9.7 fL (9.4-12.4); Platelet Count 333 K/uL (130-400); RDW Coefficient of Variation 13.1 % (11.5-14.5); RDW Standard Deviation 40.2 fL (36.4-46.3); Red Blood Count 5.24 M/uL (4.70-6.10); White Blood Count 12.44 K/ul (4.8-10.8)
[2024-06-04 06:47] LABS: Potassium 4.4 mmol/L (3.5-5.1)
[2024-06-04 06:52] LABS: BUN Creatinine Ratio 29.4 (10-20)
[2024-06-04] MEDS ORDERED: INSULIN HUMAN NPH SC ONE (12:31)
[2024-06-04] MEDS: NovoLIN-N (NPH) PER UNIT CHARGE SQ ONE (13:25)
[2024-06-04] MEDS ORDERED: PHARMACY GLYCEMIC MGMT CONSULT PRN (13:56)
--- NOTE | 2024-06-04 14:27 | Pharmacy Report ---
Pharmacy Glycemic Short Note 2 - Date of Service June 04, 2024 - Glycemic Short BSG Results (Last 24 hours): 06/03/24 06/03/24 06/04/24 16:30 19:50 05:57 Glucose 245 H POC Glucose 284 H 274 H 06/04/24 06/04/24 06/04/24 07:39 11:50 11:52 Glucose POC Glucose 234 H 329 H* 319 H* OUTPATIENT ANTIDIABETIC REGIMEN: * metformin 500 bid ASSESSMENT: * 49 year old admitted with cellulitis of neck, currently receiving cefepime/vancomycin. Type 2 diabetic - uncontrolled blood sugars during admission. Unclear of A1c prior to admission, only listed as taking metformin outpatient. * Pharmacy consulted for glycemic management. Patient received total of 143 units of insulin, of which 70 units were basal insulin. Since 05/31 we have been titrating up basal insulin each day. Increased from 55 units of Lantus to 70 units 06/03. Despite increase, fasting BSG this AM still >200. Provider ordering additional dose of NPH with lunch time check as BSG >300 - will continue with current provider orders for Lantus this evening. * Of note, vancomycin dosed Q12 hr - mixed in dextrose 500 ml due to IV fluid shortage, could be contributing to elevated BSGs. * Plan to tighten novolog parameters with dinner time check - will add on overnight checks to help with determining Lantus dose tomorrow. PLAN FOR INPATIENT GLYCEMIC CONTROL: * Hold outpatient oral diabetes medications * Basal insulin * Lantus 40 units SQ BID * Bolus insulin * NovoLog per scale ACHS or Q6hrs while NPO * Goal Range: Low 110 mg/dL - High 140 mg/dL * Correction Factor: 10 mg/dL/unit * Nutritional / Prandial insulin per carb ratio of 1 unit per 4 grams CHO consumed
--- NOTE | 2024-06-04 14:27 | Hospitalist Progress Note ---
Date of Service June 04, 2024 Assessment & Plan (1) Sepsis: Plan: 49 year old male with h/o HTN, HLD, CAD, and type 2 diabetes presenting with painful swelling of left posterior neck. Sepsis/Cellulitis present on admission: source being skin/soft tissue infection. CT neck soft tissue with prominent cellulitis with probable phlegmon within the left posterior neck. No abscess identified. Continue IV Vancomycin. exam is less tense and painful, purulence cultured initial gram stain is Gr + mrsa sensitivities, suggest linezoid or bactrim could be oral choices , blood cx negative, re image 06/01/24 phlegmon no abscess infiltration of vancomycin, elevated ice and follow left arm, still minor swelling but overall improved (2) Type 2 diabetes mellitus: Plan: T2DM: uncontrolled state continues, delay in discharge due to poor control Blood sugar check ACHS Holding Metformin Lantus increase to 40 units BID tightened Sliding scale Novolog,-> glycemic management consult (3) CAD (coronary artery disease): Plan: continue home aspirin, Eliquis. Pt reports Eliquis was started after stent plac ement, rationale unclear. persistently tachycardic, ecg is sinus tach, tsh reviewed and normal, mag is low will augment Plan HLD: continue home rosuvastatin HTN: continue home Lisinopril VTE ppx: Eliquis Full Code Admission and Anticipated Discharge Date Admission Date: June 01, 2024 Subjective pt with drainage from neck abscess,lessening and improving did have vancomycin infiltration to arm, this looks improved from one day prior initial culture shows MRSA- on vancomycin can discharge home on bactrim pt feels less ill but still with lessening neck pain and swelling Physical Exam Physical Exam: firm, less dense less tense area on left posterior neck, high up to start of hair line lessening redness and output arm with infiltration, lessened swelling, not red or with phlebitis, Results & Data Results & Data Vital Signs (Past 12 Hours) Vital Signs Temp Pulse Resp BP Pulse Ox O2 Del Method 06/04/24 07:44 98.4 F 95 H 18 125/85 94 Room Air Laboratory Results challenge with excalating need for insulin, glycemic consult on 06/04/24 PG Care Time/CCT Total # of Minutes Spent Total Time Spent with Patient: Total time spent is greater than 50% in coordination of care (as documented) at patient's floor/unit and/or counseling patient: Coding Level of Care Code 10324 SUB INP/OBS CARE 350MIN Diagnoses Sepsis A41.9 Type 2 diabetes mellitus E11.9 CAD (coronary artery disease) I25.10
[2024-06-04] MEDS: LANTUS PER UNIT CHARGE SQ SCH (21:19)
[2024-06-05] MEDS: INSULIN ASPART PER UNIT CHARGE SC SCH ×2 (00:08→17:22)
[2024-06-05 07:30] LABS: Calcium 9.1 mg/dl (8.6-10.3); Creatinine Clr Calc Pharmacy 113.8 ml/min; Potassium 4.6 mmol/L (3.5-5.1)
[2024-06-05 08:22] LABS: Estimated Average Glucose 269 mg/dl
--- NOTE | 2024-06-05 11:13 | Hospitalist Progress Note ---
Date of Service June 05, 2024 Assessment & Plan (1) Sepsis: Plan: 49 year old male with h/o HTN, HLD, CAD, and type 2 diabetes presenting with painful swelling of left posterior neck. Sepsis/Cellulitis present on admission: source being skin/soft tissue infection. CT neck soft tissue with prominent cellulitis with probable phlegmon within the left posterior neck. No abscess identified. Continue IV Vancomycin. exam is less tense and painful, purulence cultured initial gram stain is Gr + mrsa sensitivities, suggest linezoid or bactrim could be oral choices , blood cx negative, re image 06/01/24 phlegmon no abscess infiltration of vancomycin, elevated ice and follow left arm, still minor swelling but overall improved. Concern that this could be an abscess forming, will obtain repeat images, will place warm compresses to help promote drainage. WIll also reach out to Gen surgery. (2) Type 2 diabetes mellitus: Plan: T2DM: uncontrolled state continues, delay in discharge due to poor control Blood sugar check ACHS Holding Metformin Lantus increase to 40 units BID tightened Sliding scale Novolog,-> glycemic management consult (3) CAD (coronary artery disease): Plan: continue home aspirin, Eliquis. Pt reports Eliquis was started after stent placement, rationale unclear. Appears to no longer be tachycardic. tsh reviewed and normal, mag is low will augment Plan HLD: continue home rosuvastatin HTN: continue home Lisinopril VTE ppx: Eliquis Full Code Admission and Anticipated Discharge Date Admission Date: June 01, 2024 Subjective Patient reports no new symptoms. Review of Systems Review of Systems: All systems reviewed & are unremarkable except as noted in HPI & below Physical Exam Physical Exam: firm, tense area on left posterior neck, high up to start of hair line decreased output arm with infiltration, lessened swelling, not red or with phlebitis, Results & Data Results & Data Vital Signs (Past 12 Hours) Vital Signs Temp Pulse Resp BP Pulse Ox O2 Del Method 06/05/24 07:43 36.6 C 88 20 135/86 96 Room Air PG Care Time/CCT Total # of Minutes Spent Total Time Spent with Patient: Total time spent is greater than 50% in coordination of care (as documented) at patient's floor/unit and/or counseling patient: Coding Level of Care Code 79699 SUB INP/OBS CARE 3/50MIN Diagnoses Sepsis A41.9 Type 2 diabetes mellitus E11.9 CAD (coronary artery disease) I25.10 Time Spent (min) 50 Comment chart review
--- NOTE | 2024-06-05 12:49 | Surgery Consultation ---
Date of Consultation June 05, 2024 Assessment & Plan (1) Cellulitis: His CT scans from 05/30 and 06/01 were personally viewed and interpreted by myself He has no signs of an appreciable abscess but does have a significant amount of cellulitis and edema in the left posterior neck He does not have much tenderness to palpation and minimal erythema Medical team has ordered a repeat ultrasound which I think is a good step to see if there is any fluid that is accumulated into an abscess that could be drainable Please hold his Eliquis and make him n.p.o. after midnight and we will follow-up on the ultrasound to see if drainage is needed Will continue to follow History of Present Illness Reason for Consultation: Possible neck abscess Attending Physician: Sachin Lal History of Present Illness This is a 49-year-old incarcerated male who was admitted 6 days ago with a posterior neck cellulitis. He states that about 10 days ago he developed a pimple/boil on his posterior left neck and he did use warm compresses on this and then the area drained some blood. He states since that time the area is gotten more swollen and tender. He denies a mass at this site previously. He denies any fevers or chills. Denies any nausea or vomiting. There is no aggravating or relieving factors to the pain. He is diabetic and his sugars have not been under good control recently. He does take Eliquis for history of cardiac disease. Allergies Allergy/AdvReac Type Severity Reaction Status Date / Time shellfish derived Allergy Hives Verified 05/30/24 16:56 Home Medications Medication Instructions Recorded Confirmed Type amoxicillin 875 mg-potassium 1 tab PO BID #20 tabs 05/30/24 Rx clavulanate 125 mg tablet apixaban 5 mg tablet (Eliquis) 5 mg PO BID 05/30/24 05/30/24 History aspirin 81 mg tablet 81 mg PO DAILY 05/30/24 05/30/24 History celecoxib 200 mg capsule 200 mg PO BID 05/30/24 05/30/24 History lisinopril 2.5 mg tablet 2.5 mg PO DAILY 05/30/24 05/30/24 History metformin 500 mg tablet 500 mg PO BID 05/30/24 05/30/24 History rosuvastatin 5 mg tablet 5 mg PO DAILY 05/30/24 05/30/24 History Patient History Medical History CAD (coronary artery disease) HLD (hyperlipidemia) HTN (hypertension) Type 2 diabetes mellitus Diabetes Social History Smoking Status: Never smoker Hx Alcohol Use: No Hx Substance Use: No Preferred Language: Yi Communication Ability: Effective Global Cmo Required: No Beliefs That Will Affect Care: None Current Living Situation: Other Current Living Situation Comment: [employer] Other Information That Helps Us Care for You: No Feels Safe at Home: Yes Safety Concerns: Feels Safe At This Time Assistive Devices: None Review of Systems Constitutional: no fever and no chills Eyes: no blind spots, no dry eyes and no worsening vision Ear, Nose, Mouth, Throat: no ear pain, no tinnitus and no hearing loss Respiratory: no cough and no dyspnea Cardiovascular: no chest pain and no dyspnea on exertion Gastrointestinal: no abdominal pain, no nausea and no vomiting Genitourinary: no dysuria, no urinary incontinence or no nocturia Musculoskeletal: no back pain and no neck pain Integumentary: + boil and + erythema; no acne Neurologic: no gait abnormality and no headache(s) Psychiatric: no behavioral changes and no depression Hematologic / Lymphatic: no easy bleeding and no easy bruising Takes Eliquis Physical Exam Constitutional: WD/WN, vitals as above Eyes: PERRL, conjunctivae normal, anicteric sclerae ENMT: external ear and nose normal, oropharynx normal Neck: trachea midline, no thyromegaly Respiratory: normal respiratory effort, lungs clear to auscultation Cardiovascular: RRR, no murmur, no edema Gastrointestinal (Abdomen): normal bowel sounds, soft, nontender, no hepatosplenomegaly Musculoskeletal: no cyanosis or clubbing, extremities motor strength 5/5 Skin: no rashes, warm and dry Large area of induration with punctate opening in the left posterior neck, no palpable appreciable fluctuance/abscess, minimally tender to palpation Neurologic: PERRL, EOMI, accommodation nl, no face palsy, no dysarthria Psychiatric: A+Ox3, euthymic affect Results & Data Vital Signs (Past 12 Hours) Vital Signs Temp Pulse Resp BP Pulse Ox O2 Del Method 06/05/24 07:43 36.6 C 88 20 135/86 96 Room Air PG Care Time/CCT Total # of Minutes Spent Total Time Spent with Patient: Total time spent is greater than 50% in coordination of care (as documented) at patient's floor/unit and/or counseling patient: Coding Level of Care Code 48924 INT INP/OBS CARE 3/75MIN Diagnoses Cellulitis L03.221 Site of cellulitis: neck (1) Cellulitis Site of cellulitis: neck Qualified Code(s): L03.221 - Cellulitis of neck
--- NOTE | 2024-06-05 15:51 | Ultrasound Report ---
US soft tissue neck CLINICAL HISTORY: focus on neck abscess COMPARISON STUDY: Left neck CT June 01, 2024. TECHNIQUE: Sonography of the left posterior neck at site of maximal swelling and erythema was perform ed. FINDINGS: Within the left posterior neck at site of cellulitis, there is a subcutaneous 0.4 x 0.2 x 0 .4 cm oval-shaped hypoechoic focus. Within the central aspect of this focus, there is a linear 0.4 cm focus. This is highly suggestive of a foreign body. No drainable fluid collection is identified. No additional foreign bodies are identified. IMPRESSION: Small linear 0.4 cm subcutaneous echogenic focus of the left posterior neck at site of ce llulitis highly suggestive of a small foreign body. A surrounding 0.4 cm oval-shaped hypoechoic focus favors a foreign body granuloma. ACT 112: Negative or not required by law. Electronically signed by: Louis Chance M.D. 06/05/2024 3:49 PM
[2024-06-06] MEDS: INSULIN ASPART PER UNIT CHARGE SC SCH ×3 (00:45→12:44)
[2024-06-06 06:29] LABS: BUN Creatinine Ratio 24.3 (10-20); C Reactive Protein 2.07 mg/dl (0-0.5); Calcium 9.1 mg/dl (8.6-10.3); Creatinine Clr Calc Pharmacy 136.9 ml/min; Potassium 4.1 mmol/L (3.5-5.1)
[2024-06-06 06:30] LABS: Hematocrit (blood only) 43.4 % (42.0-52.0); Hemoglobin 14.2 g/dl (14.0-18.0); Mean Corpuscular Hemoglobin 27.3 pg (25.0-34.0); Mean Corpuscular Hgb Conc 32.7 g/dL (32.0-36.0); Mean Corpuscular Volume 83.5 fL (80.0-100.0); Mean Platelet Volume 9.7 fL (9.4-12.4); Platelet Count 377 K/uL (130-400); RDW Coefficient of Variation 13.1 % (11.5-14.5); RDW Standard Deviation 39.9 fL (36.4-46.3); White Blood Count 13.45 K/ul (4.8-10.8)
--- NOTE | 2024-06-06 08:47 | Pharmacy Report ---
Pharmacy PK ABX Note - Date of Service June 06, 2024 - Assessment and Plan Assessment 06/06: * Day #8 vancomycin. Renal function stable. * Surgery consulted for possible drainage/intervention. Wound/neck culture finalized (+) MRSA. 06/03: * Continues on vancomycin/cefepime (day#5 vancomycin). Renal function stable. 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 * Pertinent microbiologic data includes: Negative MRSA Nasal Swab, blood cx pending Plan Vancomycin * Current regimen: vancomycin 2250mg IV q12h * Random level this AM (~9h level), 22.5mcg/mL. Predicted to achieve ssAUC 605mg/L.hr- slightly supratherapeutic * Given therapy extended and likely accumulation, will adjust regimen to 2gm q12h. Predicted to achieve ssAUC 540mg/L.hr. * Repeat level in ~ 48h if vancomycin continued. Pharmacy will continue to follow and will adjust dose/frequency as necessary. Thank you. Pharmacy has transitioned to AUC monitoring for vancomycin. AUC/RILEY is the preferred PK/PD target and is associated with decreased risk of nephrotoxicity compared to traditional trough targets.
--- NOTE | 2024-06-06 08:56 | Surgery Progress Note ---
Date of Service June 06, 2024 Assessment & Plan (1) Cellulitis: Plan: Patient here w/ cellulitis of Left neck region WBC 13. vitals stable, pt afebrile pt reports pain tolerable/improved US obtained yesterday which shows small linear 0.4 cm subcutaneous echogenic focus of the left posterior neck at site of cellulitis highly suggestive of a small foreign body. A surrounding 0.4 cm oval-shaped hypoechoic focus favors a foreign body granuloma Pt denies sticking anything in his neck, needles, foreign bodies, etc.... There is no fluid collection to drain by US and cannot guarantee making an incision in him we would be able to find this FB We will recommend continuing on course of IV abx for now Admission and Anticipated Discharge Date Admission Date: June 01, 2024 Supervising Physician Co-Signing Physician Notes There is no abscess and only cellulitis seen As far as the questionable foreign body, I do not think exploring the area and looking for a 4 mm possible foreign body would be in good interest for the patient He is a diabetic since basically uncontrolled could have wound healing complica tions after Will treat him with antibiotics, no plans for any surgical intervention Surgical sign off at this time, please call with any questions or concerns Subjective Patient reports pain is controlled. No worsening neck symptoms. Denies sticking anything in his neck region/foreign bodies, etc. Physical Exam Physical Exam: awake/alert, no distress Neck: area of left neck swelling, two small areas of scabbing noted, no obvious fluctuance, not overly tender to palpation Results & Data Vital Signs (Past 12 Hours) Vital Signs Temp Pulse Resp BP Pulse Ox O2 Del Method 06/06/24 07:19 97.7 F 84 16 136/96 95 Room Air PG Care Time/CCT Total # of Minutes Spent Total Time Spent with Patient: Total time spent is greater than 50% in coordination of care (as documented) at patient's floor/unit and/or counseling patient: Coding Level of Care Code 92393 SUB INP/OBS CARE 08/19MIN Diagnoses Cellulitis L03.221 Site of cellulitis: neck (1) Cellulitis Site of cellulitis: neck Qualified Code(s): L03.221 - Cellulitis of neck
[2024-06-06] MEDS: VANCOMYCIN 2,000 MG in D5W 500mL (Use w/ NSS Shortage) IV SCH (10:07)
--- NOTE | 2024-06-06 13:20 | Pharmacy Report ---
Pharmacy Glycemic Short Note 2 - Date of Service June 06, 2024 - Glycemic Short BSG Results (Last 24 hours): 06/05/24 06/05/24 06/05/24 16:32 20:38 23:58 Glucose POC Glucose 290 H 232 H 245 H 06/06/24 06/06/24 06/06/24 03:46 05:23 07:40 Glucose 190 H POC Glucose 217 H 160 H 06/06/24 11:26 Glucose POC Glucose 221 H OUTPATIENT ANTIDIABETIC REGIMEN: * metformin 500 bid ASSESSMENT: 06/06: * BSGs elevated the last 24h: [id number]/dL. Received 80 units of basal and 105 units of bolus insulin yesterday. * Continues on IV vancomycin. Was NPO briefly into this AM, however diet resumed and tolerating. * Increase basal to 42 units BID starting tonight given elevated fasting. Novolog tightened to /. 06/05: * 49 year old admitted with cellulitis of neck, currently receiving cefepime/vancomycin. Type 2 diabetic - uncontrolled blood sugars during admission. Unclear of A1c prior to admission, only listed as taking metformin outpatient. * Pharmacy consulted for glycemic management. Patient received total of 143 units of insulin, of which 70 units were basal insulin. Since 05/31 we have been titrating up basal insulin each day. Increased from 55 units of Lantus to 70 units 06/03. Despite increase, fasting BSG this AM still >200. Provider ordering additional dose of NPH with lunch time check as BSG >300 - will continue with current provider orders for Lantus this evening. * Of note, vancomycin dosed Q12 hr - mixed in dextrose 500 ml due to IV fluid shortage, could be contributing to elevated BSGs. * Plan to tighten novolog parameters with dinner time check - will add on overnight checks to help with determining Lantus dose tomorrow. PLAN FOR INPATIENT GLYCEMIC CONTROL: * Hold outpatient oral diabetes medications * Basal insulin * Lantus 42 units SQ BID * Bolus insulin * NovoLog per scale ACHS or Q6hrs while NPO * Goal Range: Low 110 mg/dL - High 140 mg/dL * Correction Factor: 10 mg/dL/unit * Nutritional / Prandial insulin per carb ratio of 1 unit per 3 grams CHO consumed
[2024-06-06] MEDS: LANTUS PER UNIT CHARGE SQ SCH (20:45)
--- NOTE | 2024-06-06 22:14 | Hospitalist Progress Note ---
Date of Service June 06, 2024 Assessment & Plan (1) Sepsis: Plan: 49 year old male with h/o HTN, HLD, CAD, and type 2 diabetes presenting with painful swelling of left posterior neck. Sepsis/Cellulitis present on admission: source being skin/soft tissue infection. CT neck soft tissue with prominent cellulitis with probable phlegmon within the left posterior neck. No abscess identified. Continue IV Vancomycin. exam is less tense and painful, purulence cultured initial gram stain is Gr + mrsa sensitivities, suggest linezoid or bactrim could be oral choices , blood cx negative, re image 06/01/24 phlegmon no abscess infiltration of vancomycin, elevated ice and follow left arm, still minor swelling but overall improved. Concern that this could be an abscess forming, will obtain repeat images, will place warm compresses to help promote drainage. repeat USimges reviewed on 06/06; will monitor. (2) Type 2 diabetes mellitus: Plan: T2DM: uncontrolled state continues, delay in discharge due to poor control Blood sugar check ACHS Holding Metformin Lantus increase to 40 units BID tightened Sliding scale Novolog,-> glycemic management consult (3) CAD (coronary artery disease): Plan: continue home aspirin, Eliquis. Pt reports Eliquis was started after stent placement, rationale unclear. Appears to no longer be tachycardic. tsh reviewed and normal, mag is low will augment Plan HLD: continue home rosuvastatin HTN: continue home Lisinopril VTE ppx: Eliquis Full Code Admission and Anticipated Discharge Date Admission Date: June 01, 2024 Subjective 49 yo male reports no new symptoms. He states his neck remains hard. Physical Exam Physical Exam: firm, tense area on left posterior neck, high up to start of hair line decreased output arm with infiltration, lessened swelling, not red or with phlebitis, less hard Results & Data Results & Data Vital Signs (Past 12 Hours) Vital Signs Temp Pulse Resp BP Pulse Ox O2 Del Method 06/06/24 21:19 36.3 C L 78 16 119/84 97 Room Air 06/06/24 15:00 36.7 C 87 16 119/81 96 Room Air PG Care Time/CCT Total # of Minutes Spent Total Time Spent with Patient: Total time spent is greater than 50% in coordination of care (as documented) at patient's floor/unit and/or counseling patient: Coding Level of Care Code 08631 SUB INP/OBS CARE MIN Diagnoses Sepsis A41.9 Type 2 diabetes mellitus E11.9 CAD (coronary artery disease) I25.10
[2024-06-06] MEDS: MELATONIN 3 MG TAB PO PRN (23:08)
[2024-06-07 09:54] LABS: Basophils # (auto) 0.09 K/uL (0.00-0.20); Basophils % (auto) 0.7 %; Eosinophils # (auto) 0.37 K/uL (0.00-0.50); Eosinophils % (auto) 2.9 %; Hematocrit (blood only) 45.3 % (42.0-52.0); Immature Granulocytes # (auto) 0.24 K/uL (0.01-0.20); Immature Granulocytes % (auto) 1.9 %; Lymphocytes # (auto) 2.88 K/uL (1.20-3.40); Lymphocytes % (auto) 22.5 %; Mean Corpuscular Hemoglobin 27.5 pg (25.0-34.0); Mean Corpuscular Hgb Conc 33.1 g/dL (32.0-36.0); Mean Platelet Volume 9.6 fL (9.4-12.4); Monocytes # (auto) 0.82 K/uL (0.11-0.59); Monocytes % (auto) 6.4 %; Neutrophils % (auto) 65.6 %; Platelet Count 387 K/uL (130-400); RDW Coefficient of Variation 13.4 % (11.5-14.5); RDW Standard Deviation 40.4 fL (36.4-46.3); Red Blood Count 5.46 M/uL (4.70-6.10)
[2024-06-07 10:06] LABS: BUN Creatinine Ratio 25.3 (10-20); C Reactive Protein 1.51 mg/dl (0-0.5); Calcium 9.6 mg/dl (8.6-10.3); Creatinine Clr Calc Pharmacy 128.2 ml/min; Potassium 4.3 mmol/L (3.5-5.1)
[2024-06-07] MEDS: LANTUS PER UNIT CHARGE SQ SCH ×2 (10:34→21:30)
--- NOTE | 2024-06-07 14:19 | Pharmacy Report ---
Pharmacy Glycemic Short Note 2 - Date of Service June 07, 2024 - Glycemic Short BSG Results (Last 24 hours): 06/06/24 06/06/24 06/07/24 16:27 20:34 08:01 Glucose POC Glucose 152 H 140 H 117 H 06/07/24 06/07/24 06/07/24 09:12 11:21 12:01 Glucose 198 H POC Glucose 228 H 239 H OUTPATIENT ANTIDIABETIC REGIMEN: * metformin 500 bid ASSESSMENT: 06/07: * Patient received total of 135 units of insulin yesterday, of which 82 units were basal * Fasting BSG 117 mg/dL - BSGs much improving within last 24 hours, insulin needs much less from 06/05 to 06/06 * Will scale back on basal insulin and provide scale for HS time 06/06: * BSGs elevated the last 24h: [phone]/dL. Received 80 units of basal and 105 units of bolus insulin yesterday. * Continues on IV vancomycin. Was NPO briefly into this AM, however diet resumed and tolerating. * Increase basal to 42 units BID starting tonight given elevated fasting. Novolog tightened to 04/27. 06/05: * 49 year old admitted with cellulitis of neck, currently receiving cefepime/vancomycin. Type 2 diabetic - uncontrolled blood sugars during admission. Unclear of A1c prior to admission, only listed as taking metformin outpatient. * Pharmacy consulted for glycemic management. Patient received total of 143 units of insulin, of which 70 units were basal insulin. Since 05/31 we have been titrating up basal insulin each day. Increased from 55 units of Lantus to 70 units 06/03. Despite increase, fasting BSG this AM still >200. Provider ordering additional dose of NPH with lunch time check as BSG >300 - will continue with current provider orders for Lantus this evening. * Of note, vancomycin dosed Q12 hr - mixed in dextrose 500 ml due to IV fluid shortage, could be contributing to elevated BSGs. * Plan to tighten novolog parameters with dinner time check - will add on overnight checks to help with determining Lantus dose tomorrow. PLAN FOR INPATIENT GLYCEMIC CONTROL: * Hold outpatient oral diabetes medications * Basal insulin * Lantus 35 units Am * Lantus 35-45 units Pm * Bolus insulin * NovoLog per scale ACHS or Q6hrs while NPO * Goal Range: Low 110 mg/dL - High 140 mg/dL * Correction Factor: 15 mg/dL/unit * Nutritional / Prandial insulin per carb ratio of 1 unit per 3 grams CHO consumed
--- NOTE | 2024-06-07 15:47 | Surgery Progress Note ---
Date of Service June 07, 2024 Assessment & Plan (1) Cellulitis: Plan: His ultrasound images and results were again personally viewed and interpreted by myself I also did discuss this with the radiologist who read the ultrasound The patient has not had any improvement in his cellulitis and this foreign body is fairly close to the surface Will proceed tomorrow with excision of foreign body of the posterior neck with ultrasound guidance Make n.p.o. after midnight, continue to hold his Eliquis (2) Foreign body (FB) in soft tissue: Admission and Anticipated Discharge Date Admission Date: June 01, 2024 Subjective Patient seen and examined. Still with left neck posterior swelling. Denies any drainage. Afebrile. Review of Systems Constitutional: no fever and no chills Eyes: no blind spots and no dry eyes Ear, Nose, Mouth, Throat: no ear pain and no hearing loss Respiratory: no cough and no dyspnea Cardiovascular: no chest pain and no dyspnea on exertion Gastrointestinal: no abdominal pain, no nausea and no vomiting Genitourinary: no dysuria, no urinary incontinence or no nocturia Musculoskeletal: no back pain and no neck pain Integumentary: + boil and + erythema; no acne Neurologic: no gait abnormality and no headache(s) Psychiatric: no behavioral changes and no depression Hematologic / Lymphatic: no easy bleeding and no easy bruising Takes Eliquis Physical Exam Constitutional: WD/WN, vitals as above Eyes: PERRL, conjunctivae normal, anicteric sclerae ENMT: external ear and nose normal, oropharynx normal Neck: trachea midline, no thyromegaly Respiratory: normal respiratory effort, lungs clear to auscultation Cardiovascular: RRR, no murmur, no edema Gastrointestinal (Abdomen): normal bowel sounds, soft, nontender, no hepatosplenomegaly Musculoskeletal: no cyanosis or clubbing, extremities motor strength 5/5 Skin: no rashes, warm and dry Large area of induration with punctate opening in the left posterior neck, no palpable appreciable fluctuance/abscess, minimally tender to palpation Neurologic: PERRL, EOMI, accommodation nl, no face palsy, no dysarthria Psychiatric: A+Ox3, euthymic affect Results & Data Vital Signs (Past 12 Hours) Vital Signs Temp Pulse Resp BP Pulse Ox O2 Del Method 06/07/24 14:29 36.6 C 70 16 116/80 96 Room Air 06/07/24 08:08 36.6 C 76 16 118/82 96 Room Air PG Care Time/CCT Total # of Minutes Spent Total Time Spent with Patient: Total time spent is greater than 50% in coordination of care (as documented) at patient's floor/unit and/or counseling patient: Coding Level of Care Code 96760 SUB INP/OBS CARE 08/19MIN Diagnoses Cellulitis L03.221 Site of cellulitis: neck Foreign body (FB) in soft tissue M79.5 (1) Cellulitis Site of cellulitis: neck Qualified Code(s): L03.221 - Cellulitis of neck
--- NOTE | 2024-06-07 21:03 | Hospitalist Progress Note ---
Date of Service June 07, 2024 Assessment & Plan (1) Sepsis: Plan: 49 year old male with h/o HTN, HLD, CAD, and type 2 diabetes presenting with painful swelling of left posterior neck. Sepsis/Cellulitis present on admission: source being skin/soft tissue infection. CT neck soft tissue with prominent cellulitis with probable phlegmon within the left posterior neck. No abscess identified. Continue IV Vancomycin. exam is less tense and painful, purulence cultured initial gram stain is Gr + mrsa sensitivities, suggest linezoid or bactrim could be oral choices , blood cx negative, re image 06/01/24 phlegmon no abscess infiltration of vancomycin, elevated ice and follow left arm, still minor swelling but overall improved. repeat US images reviewed on 06/06; possible foreign body. surgery will perform I and D on 06/08 (2) Type 2 diabetes mellitus: Plan: T2DM: uncontrolled state continues, delay in discharge due to poor control Blood sugar check ACHS Holding Metformin Lantus increase to 40 units BID tightened Sliding scale Novolog,-> glycemic management consult (3) CAD (coronary artery disease): Plan: continue home aspirin, Eliquis. Pt reports Eliquis was started after stent placement, rationale unclear. Appears to no longer be tachycardic. tsh reviewed and normal, mag is low will augment Plan HLD: continue home rosuvastatin HTN: continue home Lisinopril VTE ppx: Eliquis Full Code Admission and Anticipated Discharge Date Admission Date: June 01, 2024 Subjective 49 yo male reports no new symptoms. Physical Exam Physical Exam: firm, tense area on left posterior neck, high up to start of hair line decreased output arm with infiltration, lessened swelling, not red or with phlebitis, less hard Results & Data Results & Data Vital Signs (Past 12 Hours) Vital Signs Temp Pulse Resp BP Pulse Ox O2 Del Method 06/07/24 19:18 36.7 C 90 16 120/80 95 Room Air 06/07/24 14:29 36.6 C 70 16 116/80 96 Room Air PG Care Time/CCT Total # of Minutes Spent Total Time Spent with Patient: Total time spent is greater than 50% in coordination of care (as documented) at patient's floor/unit and/or counseling patient: Coding Level of Care Code 48838 SUB INP/OBS CARE 2/35MIN Diagnoses Sepsis A41.9 Type 2 diabetes mellitus E11.9 CAD (coronary artery disease) I25.10
[2024-06-08] MEDS ORDERED: Nursing to Pharmacy Communication SCH ×2 (07:15→16:30)
[2024-06-08] MEDS: LANTUS PER UNIT CHARGE SQ SCH (08:25)
[2024-06-08 09:23] LABS: Hematocrit (blood only) 42.1 % (42.0-52.0); Hemoglobin 13.7 g/dl (14.0-18.0); Mean Corpuscular Hgb Conc 32.5 g/dL (32.0-36.0); Mean Corpuscular Volume 82.9 fL (80.0-100.0); Mean Platelet Volume 9.6 fL (9.4-12.4); Platelet Count 364 K/uL (130-400); RDW Coefficient of Variation 13.5 % (11.5-14.5); RDW Standard Deviation 40.7 fL (36.4-46.3); Red Blood Count 5.08 M/uL (4.70-6.10); White Blood Count 11.58 K/ul (4.8-10.8)
[2024-06-08 09:38] LABS: Anion Gap 7 (3-11); BUN Creatinine Ratio 22.9 (10-20); Blood Urea Nitrogen 19 mg/dl (6-23); C Reactive Protein 1.12 mg/dl (0-0.5); Calcium 9.2 mg/dl (8.6-10.3); Carbon Dioxide 25 mmol/L (21-32); Chloride 105 mmol/L (98-107); Creatinine Clr Calc Pharmacy 122.1 ml/min; Glucose 163 mg/dl (70-99(Fasting)); Sodium 137 mmol/L (136-145)
--- NOTE | 2024-06-08 11:31 | Anesthesiology Consultation ---
Date of Service June 08, 2024 Assessment & Plan (1) Encounter for pre-operative examination: Chart Review Chart Review: Acceptable Risk for Surgery History Surgery Operation Date: 06/08/24 12:20 Proposed Procedures p Excision Posterior Neck Foreign Body - Alcides Cr DO Height/Weight Height: 5 ft 6 in Weight: 109.2 kg Allergies Allergy/AdvReac Type Severity Reaction Status Date / Time shellfish derived Allergy Hives Verified 05/30/24 16:56 Medications Home Medications Medication Instructions Recorded Confirmed Last Taken amoxicillin 875 mg-potassium 1 tab PO BID #20 tabs 05/30/24 Unknown clavulanate 125 mg tablet apixaban 5 mg tablet (Eliquis) 5 mg PO BID 05/30/24 05/30/24 Unknown aspirin 81 mg tablet 81 mg PO DAILY 05/30/24 05/30/24 Unknown celecoxib 200 mg capsule 200 mg PO BID 05/30/24 05/30/24 Unknown lisinopril 2.5 mg tablet 2.5 mg PO DAILY 05/30/24 05/30/24 Unknown metformin 500 mg tablet 500 mg PO BID 05/30/24 05/30/24 Unknown rosuvastatin 5 mg tablet 5 mg PO DAILY 05/30/24 05/30/24 Unknown Active Medications Generic Name Dose Route Start Last Admin Trade Name Freq PRN Reason Stop Dose Admin Acetaminophen 1,000 mg 05/30/24 21:00 06/08/24 08:05 Acetaminophen 500 Mg Tab PO 06/29/24 20:59 Not Given TID RUTH Apixaban 5 mg 06/03/24 21:00 06/05/24 08:40 Apixaban 5 Mg Tablet PO 07/03/24 20:59 5 mg BID RUTH Administration Aspirin 81 mg 05/31/24 09:00 06/08/24 08:05 Aspirin 81 Mg Ectab PO 06/30/24 08:59 Not Given QAM RUTH Vancomycin HCl 2,000 mg/ 540 mls @ 200 mls/hr 06/06/24 10:00 06/08/24 09:47 Dextrose IV 06/09/24 21:00 200 mls/hr Q12H RUTH Administration Insulin Glargine 0 units 06/07/24 21:00 06/07/24 21:30 Lantus Per Unit Charge SQ 07/07/24 20:59 45 units HS RUTH Administration Protocol Insulin Glargine 25 units 06/08/24 09:00 06/08/24 08:25 Lantus Per Unit Charge SQ 07/08/24 08:59 25 units DAILY RUTH Administration Lisinopril 2.5 mg 05/31/24 09:00 06/08/24 08:05 Lisinopril 2.5 Mg Tab PO 06/30/24 08:59 Not Given QAM RUTH Magnesium Hydroxide 30 ml 05/30/24 18:26 06/01/24 17:05 Magnesium Hydroxide Susp 30 Ml Udc PO 06/29/24 18:25 30 ml Q6H PRN Administration Constipation Melatonin 3 mg 05/30/24 18:26 06/06/24 23:08 Melatonin 3 Mg Tab PO 06/29/24 18:25 3 mg HS PRN Administration Insomnia Morphine Sulfate 2 mg 05/30/24 18:26 06/08/24 08:28 Morphine Sulfate 2 Mg/Ml Carp IV 06/13/24 18:25 2 mg Q3H PRN Administration Pain Polyethylene Glycol 17 gm 05/30/24 18:26 06/01/24 21:23 Polyethylene (Miralax) 17 Gm Pack PO 06/29/24 18:25 17 gm DAILY PRN Administration Constipation Rosuvastatin Calcium 5 mg 05/31/24 09:00 06/08/24 08:05 Rosuvastatin Calcium 5 Mg Tab PO 06/30/24 08:59 Not Given QAM RUTH Past Medical History Medical History (Updated 06/08/24 @ 11:31 by Syd Hall MD) CAD (coronary artery disease) HLD (hyperlipidemia) HTN (hypertension) Type 2 diabetes mellitus Past Surgical History Surgical History (Updated 06/08/24 @ 11:30 by Syd Hall MD) No pertinent past surgical history Social History Smoking Status: Never smoker Hx Alcohol Use: No Hx Substance Use: No Physical Exam Vital Signs Last Vital Signs Temp 36.5 C 06/08/24 07:42 Pulse 82 06/08/24 07:42 Resp 16 06/08/24 07:42 BP 121/79 06/08/24 07:42 Pulse Ox 96 06/08/24 07:42 O2 Del Method Room Air 06/08/24 07:42 Testing Laboratory Results 06/08/24 08:53 06/08/24 09:47 Hemoglobin A1c 11.0 % (4.5-5.6) H 06/05/24 06:56 05/30/24 15:32 Aerobic Blood Culture - Final Blood No growth in Aerobic bottle after 5 days. Anaerobic Blood Culture - Final No growth in Anaerobic bottle after 5 days. 05/30/24 15:32 Aerobic Blood Culture - Final Blood No growth in Aerobic bottle after 5 days. Anaerobic Blood Culture - Final No growth in Anaerobic bottle after 5 days. 06/01/24 Unknown Gram Stain - Final Neck Wound Culture - Final Staph aureus MRSA 06/08/24 06:04 POC Glucose 152 H Laboratory Tests 06/08/24 08:53 Creatinine 0.83 Electrocardiogram Date: 05/31/24 Findings: + ST @ (107) possible inferior infarct possible anterolateral infarct No prior for comparison
[2024-06-08] MEDS ORDERED: ONDANSETRON INJ 2 MG/ML 2 ML VIAL ONE (11:49)
[2024-06-08] MEDS ORDERED: ROCURONIUM BROMIDE 10 MG/ML 5 ML VIAL IV ONE (11:49)
[2024-06-08] MEDS ORDERED: PROPOFOL IV EMULSION 10 MG/ML 20 ML VIAL IV ONE (11:49)
[2024-06-08] MEDS ORDERED: MIDAZOLAM HCL 1 MG/ML 2ML VIAL ONE (11:49)
[2024-06-08] MEDS ORDERED: fentaNYL citrate PF 100 MCG/2 ML VIAL ONE (11:49)
[2024-06-08] MEDS: INSULIN ASPART PER UNIT CHARGE SC SCH ×2 (12:26→21:15)
[2024-06-08] MEDS: LACTATED RINGER'S 1,000 ML IV SCH (13:38)
[2024-06-08] MEDS ORDERED: fentaNYL citrate PF 100 MCG/2 ML VIAL IV PRN (13:53)
[2024-06-08] MEDS ORDERED: ATROPINE SULFATE 0.1 MG/ML 10ML SYR IV PRN (13:53)
[2024-06-08] MEDS ORDERED: ONDANSETRON INJ 2 MG/ML 2 ML VIAL IV PRN (13:53)
--- NOTE | 2024-06-08 14:05 | Surgery Progress Note ---
Date of Service June 08, 2024 Assessment & Plan (1) Cellulitis: Plan: The area has been marked in preop with ultrasound Will plan on excision of the posterior neck foreign body in the operating room today Consent was obtained, risks discussed including bleeding, infection, nonhealing wound (2) Foreign body (FB) in soft tissue: Admission and Anticipated Discharge Date Admission Date: June 01, 2024 Subjective Patient seen and examined. No acute events overnight. Afebrile. Review of Systems Constitutional: no fever and no chills Eyes: no blind spots and no dry eyes Ear, Nose, Mouth, Throat: no ear pain and no hearing loss Respiratory: no cough and no dyspnea Cardiovascular: no chest pain and no dyspnea on exertion Gastrointestinal: no abdominal pain, no nausea and no vomiting Genitourinary: no dysuria, no urinary incontinence or no nocturia Musculoskeletal: no back pain and no neck pain Integumentary: + boil and + erythema; no acne Neurologic: no gait abnormality and no headache(s) Psychiatric: no behavioral changes and no depression Hematologic / Lymphatic: no easy bleeding and no easy bruising Takes Eliquis Physical Exam Constitutional: WD/WN, vitals as above Eyes: PERRL, conjunctivae normal, anicteric sclerae ENMT: external ear and nose normal, oropharynx normal Neck: trachea midline, no thyromegaly Respiratory: normal respiratory effort, lungs clear to auscultation Cardiovascular: RRR, no murmur, no edema Gastrointestinal (Abdomen): normal bowel sounds, soft, nontender, no hepatosplenomegaly Musculoskeletal: no cyanosis or clubbing, extremities motor strength 5/5 Skin: no rashes, warm and dry Large area of induration with punctate opening in the left posterior neck, no palpable appreciable fluctuance/abscess, minimally tender to palpation Neurologic: PERRL, EOMI, accommodation nl, no face palsy, no dysarthria Psychiatric: A+Ox3, euthymic affect Results & Data Vital Signs (Past 12 Hours) Vital Signs Temp Pulse Resp BP Pulse Ox O2 Del Method 06/08/24 13:29 36.8 C 80 18 116/87 98 Room Air 06/08/24 07:42 36.5 C 82 16 121/79 96 Room Air PG Care Time/CCT Total # of Minutes Spent Total Time Spent with Patient: Total time spent is greater than 50% in coordination of care (as documented) at patient's floor/unit and/or counseling patient: Coding Level of Care Code 45980 SUB INP/OBS CARE Diagnoses Cellulitis L03.221 Site of cellulitis: neck Foreign body (FB) in soft tissue M79.5 (1) Cellulitis Site of cellulitis: neck Qualified Code(s): L03.221 - Cellulitis of neck
--- NOTE | 2024-06-08 14:16 | Ultrasound Report ---
US soft tissue neck HISTORY: 49 years-old Male FOB in neck , get Dr. Dempsey to go with you follow-up study in a zohaib ent with foreign body of the neck COMPARISON: Ultrasound 06/05/2024, CT 06/01/2024 TECHNIQUE: Multiple real-time static images of the soft tissues of the posterior neck were obtained a ssessing grayscale appearance and color flow FINDINGS: The patient was in the preoperative exam area awaiting surgery for foreign body excision. Increased echogenicity of the subcutaneous tissues compatible with cellulitis. Superficial subcutaneo us linear echogenic foreign body measuring 4 mm redemonstrated. An indelible marker was then used to ancelmo the skin superficial to the foreign body. IMPRESSION: Persistent subcutaneous 4 mm linear foreign body. The skin superficial to the foreign bod y was marked in preparation for surgery. ACT 112: Negative or not required by law. The above report was generated using voice recognition software. It may contain grammatical, syntax o r spelling errors. Electronically signed by: Yunior Dempsey M.D. 06/08/2024 2:14 PM
[2024-06-08] MEDS ORDERED: DEXAMETHASONE SOD INJ 4 MG/ML VIAL ONE (14:56)
[2024-06-08] MEDS: BUPIVACAINE/EPINEPHRINE 0.25% 1:200,000 30 ML VIAL ONE (14:58)
--- NOTE | 2024-06-08 15:00 | Post Operative Brief Note ---
PG Immediate Post Op with CF Date of Surgery June 08, 2024 Pre & Post Diagnosis Operation Date: 06/08/24 12:20 Pre-Op Diagnosis: Foreign body Post-Op Diagnosis: Foreign body and neck abscess I identified the patient and participated in the time-out.: Yes Procedure Operation Date: 06/08/24 12:20 Actual Procedures p Excision Posterior Neck Foreign Body, Drainage of Neck Abscess(Not Applicable) - Alcides Cr DO Surgeon Alcides Cr DO Hvac Maintenance Technician Brannon NEWMAN Estimated Blood Loss 7 Findings See Below Thickened area of the dermis with the foreign body was in question Purulent fluid upon entrance to the subcutaneous tissue that was tracking laterally Specimens Specimen Description: A. Posterior neck foreign body 1. Culture - neck abscess fluid Anesthesia Type General Complications none Disposition Disposition: Recovery Room
--- NOTE | 2024-06-08 15:03 | Operative Report ---
PG Post Operative Report Pre & Post Diagnosis Operation Date: 06/08/24 12:20 Pre-Op Diagnosis: Foreign body Post-Op Diagnosis: Foreign body and neck abscess I identified the patient and participated in the time-out.: Yes Procedure Operation Date: 06/08/24 12:20 Actual Procedures p Excision Posterior Neck Foreign Body, Drainage of Neck Abscess(Not Applicable) - Alcides Cr DO Surgeon Alcides Cr DO Rosin Barrel Filler Brannon NEWMAN Estimated Blood Loss 7 Findings See Below Thickened area of the dermis with the foreign body was in question Purulent fluid upon entrance to the subcutaneous tissue that was tracking laterally Specimens Posterior neck foreign body to pathology Abscess fluid for culture Drains None Anesthesia Type General Complications none Disposition Disposition: Recovery Room Indications 49-year-old male with sonographic findings of a posterior neck foreign body along with cellulitis Description of Procedure The patient was brought to the OR and placed in the supine position. At this time he underwent General LMA anesthesia without issue. He was given appropriate pre-operative antibiotics. The patient was then placed in the right lateral decubitus position. The posterior neck was prepped and draped in the usual sterile fashion. A timeout was called. The procedure was verified as excision of posterior neck foreign body. Surgical, anesthesia and nursing teams agreed and the procedure was begun. After injection of 0.25% Marcaine with epinephrine, an vertical elliptical incision was made directly over the area marked by radiology delineating the foreign body. At this time a full-thickness excision of the skin down to the subcutaneous tissue was performed with a 15 blade scalpel and electrocautery. This was sent off as specimen. Once we reached the subcutaneous tissue there was purulent fluid encountered that was tracking more laterally in the neck. I did open this area up with a hemostat. Wide drainage was ensured. All loculations were broken up bluntly. At this time the incision was irrigated until clear. Hemostasis was achieved using electrocautery. Hemostasis was complete. The incision was packed with quarter inch plain packing. Sterile dressing was applied. The patient was awakened from anesthesia and taking to PACU having remained stable throughout the entire case. All needle and sponge counts correct x 2. The nurse practitioner was present scrubbed the entire case. She was essential in positioning, prepping and draping the patient, retraction and exposure and placement of the dressing. I attest to the content of the Intraoperative Record and any orders documented therein. Any exceptions are noted below.
--- NOTE | 2024-06-08 15:09 | Pharmacy Report ---
Pharmacy Glycemic Short Note 2 - Date of Service June 08, 2024 - Glycemic Short BSG Results (Last 24 hours): 06/07/24 06/07/24 06/08/24 16:27 20:41 06:04 Glucose POC Glucose 198 H 210 H 152 H 06/08/24 06/08/24 06/08/24 08:53 11:52 13:31 Glucose 163 H POC Glucose 182 H 169 H OUTPATIENT ANTIDIABETIC REGIMEN: * metformin 500 bid ASSESSMENT: 06/08: * Patient received total of 153 units of insulin yesterday, of which 80 units were basal * Fasting BSG 152 mg/dL - NPO this AM, will scale back on total basal by ~25% 06/07: * Patient received total of 135 units of insulin yesterday, of which 82 units were basal * Fasting BSG 117 mg/dL - BSGs much improving within last 24 hours, insulin needs much less from 06/05 to 06/06 * Will scale back on basal insulin and provide scale for HS time 06/06: * BSGs elevated the last 24h: [phone]/dL. Received 80 units of basal and 105 units of bolus insulin yesterday. * Continues on IV vancomycin. Was NPO briefly into this AM, however diet resumed and tolerating. * Increase basal to 42 units BID starting tonight given elevated fasting. Novolog tightened to 04/27. 06/05: * 49 year old admitted with cellulitis of neck, currently receiving cefepime/vancomycin. Type 2 diabetic - uncontrolled blood sugars during admission. Unclear of A1c prior to admission, only listed as taking metformin outpatient. * Pharmacy consulted for glycemic management. Patient received total of 143 units of insulin, of which 70 units were basal insulin. Since 05/31 we have been titrating up basal insulin each day. Increased from 55 units of Lantus to 70 units 06/03. Despite increase, fasting BSG this AM still >200. Provider ordering additional dose of NPH with lunch time check as BSG >300 - will continue with current provider orders for Lantus this evening. * Of note, vancomycin dosed Q12 hr - mixed in dextrose 500 ml due to IV fluid shortage, could be contributing to elevated BSGs. * Plan to tighten novolog parameters with dinner time check - will add on overnight checks to help with determining Lantus dose tomorrow. PLAN FOR INPATIENT GLYCEMIC CONTROL: * Hold outpatient oral diabetes medications * Basal insulin * Lantus 25 units Am * Lantus 30-40 units Pm * Bolus insulin * NovoLog per scale ACHS or Q6hrs while NPO * Goal Range: Low 110 mg/dL - High 140 mg/dL * Correction Factor: 15 mg/dL/unit * Nutritional / Prandial insulin per carb ratio of 1 unit per 3 grams CHO consumed
[2024-06-08] MEDS: KETOROLAC 30 MG/ML VIAL IV PRN (15:36)
--- NOTE | 2024-06-08 15:49 | Anesthesiology Progress Note ---
Date of Service June 08, 2024 Anesthesia Post Procedure Vital Signs Vital Signs: Temp Pulse Pulse Resp BP Pulse Ox O2 Del Method 06/08/24 15:40 83 15 112/74 94 Oxymask 06/08/24 15:30 89 21 103/70 99 Oxymask 06/08/24 15:20 87 19 112/74 100 Oxymask 06/08/24 15:10 36.4 C L 88 20 115/77 99 Oxymask 06/08/24 13:29 36.8 C 80 18 116/87 98 Room Air 06/08/24 07:42 36.5 C 82 16 121/79 96 Room Air 06/07/24 19:18 36.7 C 90 16 120/80 95 Room Air O2 Flow Rate 06/08/24 15:40 2 06/08/24 15:30 3 06/08/24 15:20 5 06/08/24 15:10 7 06/08/24 13:29 06/08/24 07:42 06/07/24 19:18 Pain Intensity Left Lateral Neck: Pain Intensity: 0 Transfer of Care Handoff Completed per policy Notes Mental Status: alert / awake / arousable Patient Amnestic to Procedure: Yes Nausea / Vomiting: adequately controlled Pain: adequately controlled Airway Patency, RR, SpO2: stable & adequate BP & HR: stable & adequate Hydration State: stable & adequate Anesthetic Complications: no major complications apparent
[2024-06-08] MEDS: INSULIN ASPART PER UNIT CHARGE SC ONE (17:34)
--- NOTE | 2024-06-08 22:59 | Hospitalist Progress Note ---
Date of Service June 08, 2024 Assessment & Plan (1) Sepsis: Plan: 49 year old male with h/o HTN, HLD, CAD, and type 2 diabetes presenting with painful swelling of left posterior neck. Sepsis/Cellulitis present on admission: source being skin/soft tissue infection. CT neck soft tissue with prominent cellulitis with probable phlegmon within the left posterior neck. No abscess identified. Continue IV Vancomycin. exam is less tense and painful, purulence cultured initial gram stain is Gr + mrsa sensitivities, suggest linezoid or bactrim could be oral choices , blood cx negative, re image 06/01/24 phlegmon no abscess infiltration of vancomycin, elevated ice and follow left arm, still minor swelling but overall improved. repeat US images reviewed on 06/06; possible foreign body. surgery s/p I and D on 06/08 Purulent drainage sent to micro lab for culture (2) Type 2 diabetes mellitus: Plan: T2DM: uncontrolled state continues, delay in discharge due to poor control Blood sugar check ACHS Holding Metformin Lantus increase to 40 units BID tightened Sliding scale Novolog,-> glycemic management consult (3) CAD (coronary artery disease): Plan: continue home aspirin, Eliquis. Pt reports Eliquis was started after stent placement, rationale unclear. Appears to no longer be tachycardic. tsh reviewed and normal, mag is low will augment Plan HLD: continue home rosuvastatin HTN: continue home Lisinopril VTE ppx: Eliquis Full Code Admission and Anticipated Discharge Date Admission Date: June 01, 2024 Subjective Patient reports no new symptoms. Physical Exam Physical Exam: firm, tense area on left posterior neck, high up to start of hair line decreased output arm with infiltration, lessened swelling, not red or with phlebitis, less hard Results & Data Results & Data Vital Signs (Past 12 Hours) Vital Signs Temp Pulse Pulse Resp BP BP Pulse Ox 06/08/24 19:49 36.9 C 84 16 101/69 94 06/08/24 18:39 36.3 C L 84 18 122/80 95 06/08/24 17:54 36.8 C 79 18 109/72 95 06/08/24 17:16 36.4 C L 85 18 108/73 94 06/08/24 16:44 36.6 C 78 18 112/75 94 06/08/24 15:55 36.9 C 83 18 116/79 95 06/08/24 15:40 83 15 112/74 94 06/08/24 15:30 89 21 103/70 99 06/08/24 15:20 87 19 112/74 100 06/08/24 15:10 36.4 C L 88 20 115/77 99 06/08/24 13:29 36.8 C 80 18 116/87 98 O2 Del Method O2 Flow Rate 06/08/24 19:49 Room Air 06/08/24 18:39 Room Air 06/08/24 17:54 Room Air 06/08/24 17:16 Room Air 06/08/24 16:44 Room Air 06/08/24 15:55 Room Air 06/08/24 15:40 Oxymask 2 06/08/24 15:30 Oxymask 3 06/08/24 15:20 Oxymask 5 06/08/24 15:10 Oxymask 7 06/08/24 13:29 Room Air PG Care Time/CCT Total # of Minutes Spent Total Time Spent with Patient: Total time spent is greater than 50% in coordination of care (as documented) at patient's floor/unit and/or counseling patient: Coding Level of Care Code 28962 SUB INP/OBS CARE 2/35MIN Diagnoses Sepsis A41.9 Type 2 diabetes mellitus E11.9 CAD (coronary artery disease) I25.10
[2024-06-09 07:43] LABS: BUN Creatinine Ratio 24.7 (10-20); C Reactive Protein 0.97 mg/dl (0-0.5); Calcium 8.9 mg/dl (8.6-10.3); Creatinine Clr Calc Pharmacy 104.4 ml/min; Potassium 4.6 mmol/L (3.5-5.1)
[2024-06-09] MEDS: LANTUS PER UNIT CHARGE SQ SCH (08:28)
[2024-06-09 08:46] LABS: Hematocrit (blood only) 40.4 % (42.0-52.0); Hemoglobin 13.4 g/dl (14.0-18.0); Mean Corpuscular Hemoglobin 27.4 pg (25.0-34.0); Mean Corpuscular Hgb Conc 33.2 g/dL (32.0-36.0); Mean Corpuscular Volume 82.6 fL (80.0-100.0); Mean Platelet Volume 9.5 fL (9.4-12.4); Platelet Count 376 K/uL (130-400); RDW Coefficient of Variation 13.2 % (11.5-14.5); RDW Standard Deviation 39.7 fL (36.4-46.3); Red Blood Count 4.89 M/uL (4.70-6.10); White Blood Count 21.86 K/ul (4.8-10.8)
[2024-06-09] MEDS: VANCOMYCIN LEVEL ONE (09:20)
--- NOTE | 2024-06-09 09:27 | Pharmacy Report ---
Pharmacy PK ABX Note - Date of Service June 09, 2024 - Assessment and Plan Assessment 06/09: * Day #11 - Random vancomycin level this AM ~24 mcg/ml - current dosing associated with AUC/RILEY >600 - therefore will decrease dosing. Repeat I&D completed yesterday with staph aureus on preliminary, previous culture with MRSA 06/06: * Day #8 vancomycin. Renal function stable. * Surgery consulted for possible drainage/intervention. Wound/neck culture finalized (+) MRSA. 06/03: * Continues on vancomycin/cefepime (day#5 vancomycin). Renal function stable. 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 * Pertinent microbiologic data includes: Negative MRSA Nasal Swab, blood cx pending Plan Vancomycin * Decrease vancomycin dosing today due to level - will decrease to 1500 mg iv q 12 hours * Will obtain another level in next 3-4 days or sooner if renal function changes * Discussed with provider as abx order falling off, would like extended out another 7 days for now Pharmacy will continue to follow and will adjust dose/frequency as necessary. Thank you. Pharmacy has transitioned to AUC monitoring for vancomycin. AUC/RILEY is the preferred PK/PD target and is associated with decreased risk of nephrotoxicity compared to traditional trough targets.
--- NOTE | 2024-06-09 11:14 | Pharmacy Report ---
Pharmacy Glycemic Short Note 2 - Date of Service June 09, 2024 - Glycemic Short BSG Results (Last 24 hours): 06/08/24 06/08/24 06/08/24 11:52 13:31 15:15 Glucose POC Glucose 182 H 169 H 113 H 06/08/24 06/08/24 06/09/24 16:27 21:09 07:08 Glucose 199 H POC Glucose 129 H 241 H 06/09/24 07:43 Glucose POC Glucose 163 H OUTPATIENT ANTIDIABETIC REGIMEN: * metformin 500 bid ASSESSMENT: 06/09: * Patient received total of 100 units of insulin, of which 65 units were basal - was reduced for NPO status yesterday * Fasting BSG 163 mg/dL - of note, iv dexamethasone given intraoperatively yesterday afternoon. Will increase basal back to ~80 units/day which is what patient was receiving prior to procedure * No change to CF/CR today 06/08: * Patient received total of 153 units of insulin yesterday, of which 80 units were basal * Fasting BSG 152 mg/dL - NPO this AM, will scale back on total basal by ~25% 06/07: * Patient received total of 135 units of insulin yesterday, of which 82 units were basal * Fasting BSG 117 mg/dL - BSGs much improving within last 24 hours, insulin needs much less from 06/05 to 06/06 * Will scale back on basal insulin and provide scale for HS time 06/06: * BSGs elevated the last 24h: [phone]/dL. Received 80 units of basal and 105 units of bolus insulin yesterday. * Continues on IV vancomycin. Was NPO briefly into this AM, however diet resumed and tolerating. * Increase basal to 42 units BID starting tonight given elevated fasting. Novolog tightened to 04/27. 06/05: * 49 year old admitted with cellulitis of neck, currently receiving cefepime/vancomycin. Type 2 diabetic - uncontrolled blood sugars during admission. Unclear of A1c prior to admission, only listed as taking metformin outpatient. * Pharmacy consulted for glycemic management. Patient received total of 143 units of insulin, of which 70 units were basal insulin. Since 05/31 we have been titrating up basal insulin each day. Increased from 55 units of Lantus to 70 units 06/03. Despite increase, fasting BSG this AM still >200. Provider ordering additional dose of NPH with lunch time check as BSG >300 - will continue with current provider orders for Lantus this evening. * Of note, vancomycin dosed Q12 hr - mixed in dextrose 500 ml due to IV fluid shortage, could be contributing to elevated BSGs. * Plan to tighten novolog parameters with dinner time check - will add on overnight checks to help with determining Lantus dose tomorrow. PLAN FOR INPATIENT GLYCEMIC CONTROL: * Hold outpatient oral diabetes medications * Basal insulin * Lantus 45 units Qam * Lantus 30-35 units Pm * Bolus insulin * NovoLog per scale ACHS or Q6hrs while NPO * Goal Range: Low 110 mg/dL - High 140 mg/dL * Correction Factor: 15 mg/dL/unit * Nutritional / Prandial insulin per carb ratio of 1 unit per 3 grams CHO consumed
[2024-06-09] MEDS: VANCOMYCIN 1,500 MG in D5W 500mL (Use w/ NSS Shortage) IV SCH (11:59)
--- NOTE | 2024-06-09 12:56 | Surgery Progress Note ---
<Statement entered by Sharmaine Reeves DO - 06/09/24 13:20> I have seen this patient with the surgical PA and changed the packing. Wound without evidence for infection. Date of Service June 09, 2024 Assessment & Plan (1) Cellulitis: Plan: POD#1 left posterior neck I&D WBC 21.8. Patient's vital stable and he is afebrile Cultures growing staph aureus; pathology pending Wound re-packed this AM with surgeon with 1/4" nu-gauze, covered with dry 4x4 gauze and medipore Continue daily packing, this may be performed at correction and he may f/u with dr. cabrera in the office in 7-10 days Complete course of abx for infection Okay to resume eliquis May dispo when cleared by medicine Admission and Anticipated Discharge Date Admission Date: June 01, 2024 Subjective Pt reports feeling well. Offers no complaints Physical Exam Physical Exam: awake/alert, no distress Neck: Neck incision clean and intact, bloody drainage noted on packing and gauze. erythema improving Results & Data Vital Signs (Past 12 Hours) Vital Signs Temp Pulse Resp BP Pulse Ox O2 Del Method 06/09/24 07:58 97.9 F 82 16 112/73 95 Room Air 06/09/24 04:28 97.5 F L 81 16 101/65 95 Room Air PG Care Time/CCT Total # of Minutes Spent Total Time Spent with Patient: Total time spent is greater than 50% in coordination of care (as documented) at patient's floor/unit and/or counseling patient: Coding Level of Care Code 83550 Post Operative Follow-Up Diagnoses Cellulitis L03.221 Site of cellulitis: neck (1) Cellulitis Site of cellulitis: neck Qualified Code(s): L03.221 - Cellulitis of neck
--- NOTE | 2024-06-09 23:34 | Hospitalist Progress Note ---
Date of Service June 09, 2024 Assessment & Plan (1) Sepsis: Plan: 49 year old male with h/o HTN, HLD, CAD, and type 2 diabetes presenting with painful swelling of left posterior neck. Sepsis/Cellulitis present on admission: source being skin/soft tissue infection. CT neck soft tissue with prominent cellulitis with probable phlegmon within the left posterior neck. No abscess identified. Continue IV Vancomycin. exam is less tense and painful, purulence cultured initial gram stain is Gr + mrsa sensitivities, suggest linezoid or bactrim could be oral choices , blood cx negative, re image 06/01/24 phlegmon no abscess infiltration of vancomycin, elevated ice and follow left arm, still minor swelling but overall improved. repeat US images reviewed on 06/06; possible foreign body. surgery s/p I and D on 06/08 Purulent drainage sent to micro lab for culture Awaiting cultures on 06/09 Patient showing significant improvement. (2) Type 2 diabetes mellitus: Plan: T2DM: uncontrolled state continues, delay in discharge due to poor control Blood sugar check ACHS Holding Metformin Lantus increase to 40 units BID tightened Sliding scale Novolog,-> glycemic management consult (3) CAD (coronary artery disease): Plan: continue home aspirin, Eliquis. Pt reports Eliquis was started after stent placement, rationale unclear. Appears to no longer be tachycardic. tsh reviewed and normal, mag is low will augment Plan HLD: continue home rosuvastatin HTN: continue home Lisinopril VTE ppx: Eliquis Full Code Admission and Anticipated Discharge Date Admission Date: June 01, 2024 Subjective 49 yo male reports feeling well. His neck is no longer in pain. He states it is less tight. Review of Systems Review of Systems: All systems reviewed & are unremarkable except as noted in HPI & below Physical Exam Physical Exam: firm, tense area on left posterior neck, high up to start of hair line decreased output arm with infiltration, lessened swelling, not red or with phlebitis, less hard Results & Data Results & Data Vital Signs (Past 12 Hours) Vital Signs Temp Pulse Resp BP Pulse Ox O2 Del Method 06/09/24 20:33 36.7 C 79 16 99/64 L 95 Room Air 06/09/24 20:09 36.7 C 79 16 99/64 L 95 Room Air 06/09/24 15:05 36.7 C 79 16 101/68 97 Room Air PG Care Time/CCT Total # of Minutes Spent Total Time Spent with Patient: Total time spent is greater than 50% in coordination of care (as documented) at patient's floor/unit and/or counseling patient: Coding Level of Care Code 93014 SUB INP/OBS CARE 2/35MIN Diagnoses Sepsis A41.9 Type 2 diabetes mellitus E11.9 CAD (coronary artery disease) I25.10
[2024-06-10 07:28] LABS: Hematocrit (blood only) 40.5 % (42.0-52.0); Hemoglobin 13.2 g/dl (14.0-18.0); Mean Corpuscular Hemoglobin 27.2 pg (25.0-34.0); Mean Corpuscular Hgb Conc 32.6 g/dL (32.0-36.0); Mean Corpuscular Volume 83.3 fL (80.0-100.0); Mean Platelet Volume 9.5 fL (9.4-12.4); Platelet Count 375 K/uL (130-400); RDW Coefficient of Variation 13.4 % (11.5-14.5); Red Blood Count 4.86 M/uL (4.70-6.10); White Blood Count 13.87 K/ul (4.8-10.8)
[2024-06-10 07:44] LABS: BUN Creatinine Ratio 25.9 (10-20); C Reactive Protein 0.85 mg/dl (0-0.5); Calcium 8.8 mg/dl (8.6-10.3); Creatinine Clr Calc Pharmacy 87.3 ml/min; Potassium 4.3 mmol/L (3.5-5.1)
[2024-06-10 21:07] VITALS: RESP 16
[2024-06-11 07:56] VITALS: PULSE 88; TEMP 97.9; O2SAT 95
--- NOTE | 2024-06-11 08:14 | Hospitalist Progress Note ---
Date of Service June 10, 2024 Assessment & Plan (1) Sepsis: Plan: 49 year old male with h/o HTN, HLD, CAD, and type 2 diabetes presenting with painful swelling of left posterior neck. Sepsis/Cellulitis present on admission: source being skin/soft tissue infection. CT neck soft tissue with prominent cellulitis with probable phlegmon within the left posterior neck. No abscess identified. Continue IV Vancomycin. exam is less tense and painful, purulence cultured initial gram stain is Gr + mrsa sensitivities, suggest linezoid or bactrim could be oral choices , blood cx negative, re image 06/01/24 phlegmon no abscess infiltration of vancomycin, elevated ice and follow left arm, still minor swelling but overall improved. repeat US images reviewed on 06/06; possible foreign body. surgery s/p I and D on 06/08 Purulent drainage sent to micro lab for culture Cultures shows MRSA; oral options are avaulable. Patient showing significant improvement. (2) Type 2 diabetes mellitus: Plan: T2DM: uncontrolled state continues, delay in discharge due to poor control Blood sugar check ACHS Holding Metformin Lantus increase to 40 units BID tightened Sliding scale Novolog,-> glycemic management consult (3) CAD (coronary artery disease): Plan: continue home aspirin, Eliquis. Pt reports Eliquis was started after stent placement, rationale unclear. Appears to no longer be tachycardic. tsh reviewed and normal, mag is low will augment Plan HLD: continue home rosuvastatin HTN: continue home Lisinopril VTE ppx: Eliquis Full Code Admission and Anticipated Discharge Date Admission Date: June 01, 2024 Subjective 49 yo male reports no new symptoms. He feels improved. Physical Exam Physical Exam: Neck is no longer firm. decreased output arm with infiltration, lessened swelling, not red or with phlebitis, less hard Results & Data Results & Data Vital Signs (Past 12 Hours) Vital Signs Temp Pulse Resp BP Pulse Ox O2 Del Method 06/11/24 07:40 36.6 C 88 16 122/79 95 Room Air PG Care Time/CCT Total # of Minutes Spent Total Time Spent with Patient: Total time spent is greater than 50% in coordination of care (as documented) at patient's floor/unit and/or counseling patient: Coding Level of Care Code 67303 SUB INP/OBS CARE 2/35MIN Diagnoses Sepsis A41.9 Type 2 diabetes mellitus E11.9 CAD (coronary artery disease) I25.10
[2024-06-11 08:21] VITALS: BP 121/84
--- NOTE | 2024-06-11 08:31 | Discharge Summary ---
Discharge Summary Date of Service June 11, 2024 Principal Dx & Hospital Course #1 = Principal Diagnosis (1) Sepsis: 49 year old male with h/o HTN, HLD, CAD, and type 2 diabetes presenting with painful swelling of left posterior neck. Sepsis/Cellulitis present on admission: source being skin/soft tissue infection. CT neck soft tissue with prominent cellulitis with probable phlegmon within the left posterior neck. No abscess identified. Continue IV Vancomycin. exam is less tense and painful, purulence cultured initial gram stain is Gr + mrsa sensitivities, suggest linezoid or bactrim could be oral choices , blood cx negative, re image 06/01/24 phlegmon no abscess infiltration of vancomycin, elevated ice and follow left arm, still minor swelling but overall improved. repeat US images reviewed on 06/06; possible foreign body. s/p I and D on 06/08 Purulent drainage sent to micro lab for culture Cultures shows MRSA; Patient showed significant improvement post I and D. Patient will be discharged with oral antibiotics noted below. (2) Type 2 diabetes mellitus: T2DM: uncontrolled state continues, delay in discharge due to poor control Blood sugar check ACHS Holding Metformin Lantus increase to 40 units BID tightened Sliding scale Novolog,-> glycemic management consult (3) CAD (coronary artery disease): continue home aspirin, Eliquis. Pt reports Eliquis was started after stent placement, rationale unclear. Appears to no longer be tachycardic. tsh reviewed and normal, mag is low will augment Plan HLD: continue home rosuvastatin HTN: continue home Lisinopril Admission HPI Per Admitting Provider 49 year old male with h/o HTN, HLD, CAD, and type 2 diabetes presenting with painful swelling of left posterior neck. First noticed small, focal area of swelling last , 05/25. Since then, lesion has progressively enlarged and has also become more painful. Patient notes that at one point, lesion spontaneously drained a small amount of blood but no pus noted. Patient was seen by nurse at [facility] this morning, recommended evaluation in ED. Denies antecedent open skin lesion. Denies fevers/chills. Denies difficulty swallowing. ED Course: WBC count 17, HR [address] on admission. Lactate negative. CT neck soft tissue with prominent cellulitis with probable phlegmon within the left posterior neck. No abscess identified. Patient given one dose of Unasyn. Discharge Exam Neck is no longer firm with clean dry dressing. decreased output arm with infiltration, lessened swelling, not red or with phlebitis, less hard Discharge Plan Discharge Items [facility] Reason For Visit: CELLULITIS Discharge Diagnosis: cellulitis Activity: Resume your previous activity Non-emergency contact: Primary Care Provider Call non-emergency contact if: you have any medication questions Follow-up/Referrals: Alcides Cabrera, [Physician] - (Please call to schedule follow up in clinic within 7-10 days) Loyd ODELL [Primary Care Provider] - Diet: Carb Consistent or DM2 Addtl Attending Provider Instructions: Please change neck dressing daily. Pack incision with dry 1/4" plain nu-gauze cut to size. Cover with dry 4x4 gauze and adhere with medipore tape. he may f/u with dr. cabrera in the office in 7-10 days Complete course of abx for infection for 6 and a half days more. Next dose tonight. Okay to resume eliquis Pending Studies at Discharge: No Stand-Alone Forms: My [employer], Smoking Cessation Skilled Items Patient informed of condition?: Yes Discharge Level of Care: Other Communicable Disease: No Discharge Prognosis: Stable Lines: None Urinary Catheter: No Medications and DC Order Prescriptions: New sulfamethoxazole-trimethoprim [Bactrim DS] 800-160 mg Tablet 2 tab PO Q12 7 Days Qty: 26 0RF Novolin 70-30 FlexPen U-100 100 unit/mL (70-30) insulin pen See Rx Instructions .ROUTE .COMPLEX Qty: 15 0RF Rx Instructions: Subcutaneous, 75 units with breakfast 50 units with dinner Continued celecoxib 200 mg Capsule 200 mg PO BID metformin 500 mg Tablet 500 mg PO BID aspirin 81 mg Tablet 81 mg PO DAILY lisinopril 2.5 mg Tablet 2.5 mg PO DAILY rosuvastatin 5 mg Tablet 5 mg PO DAILY Eliquis 5 mg Tablet 5 mg PO BID Discharge Orders: Discharge Order (Routine); Ordered 06/11/24 Ordered By: Sachin Lal Admission Data Admit Date/Time: 06/01/24 12:00 Attending Provider: Sachin Lal Admit Provider: Karsten Chris Primary Care Provider: Loyd ODELL Other Providers: Vladimir Pitt; Alcides Cabrera; Sharmaine Reeves; Karsten Chris; Al Rodas; Sachin Lal Other Interventions: Discharge Summary Assessment (RN) Last Done: 06/11/24 10:52 Hospital Stay Data Consultations 05/30/24 14:49 ED Decision to Admit Stat 06/05/24 11:04 Consult General Surgery Routine Procedures Performed Operation Date: 06/08/24 12:20 Actual Procedures p Excision Posterior Neck Foreign Body, Drainage of Neck Abscess(Not Applicable) - Alcides Cabrera, DO Diagnostic Imagining Performed 05/30/24 12:27 CT soft tissue neck wo con Stat 06/01/24 07:56 CT neck soft tissues [CT soft tissue neck wo con] Routine 06/05/24 11:07 US soft tissue neck Routine 06/08/24 13:33 US soft tissue neck Stat Pending Results Patient Have Any Pending Studies at Discharge: No Discharge Instructions Given to Patient (Per Discharging Provider) Please change neck dressing daily. Pack incision with dry 1/4" plain nu-gauze cut to size. Cover with dry 4x4 gauze and adhere with medipore tape. he may f/u with dr. cabrera in the office in 7-10 days Complete course of abx for infection for 6 and a half days more. Next dose tonight. Okay to resume eliquis Total Time Total Time Spent Total Time Spent (In Minutes): 35 Coding Level of Care Code 41858 INP/OBS DISCH >30 MIN Diagnoses Sepsis A41.9 Type 2 diabetes mellitus E11.9 CAD (coronary artery disease) I25.10
[2024-06-11 09:26] LABS: Creatinine Clr Calc Pharmacy 102.3 ml/min
[2024-06-11] MEDS: SULFAMETHOXAZOLE/TRIMETHOPRIM DS 800/160MG TAB PO SCH (09:58)
== END 2024-06-11 13:57 | DRG 872 ==
LOC: 3W 12:14 → ED 12:14 → SUATTDRO 15:30 → 3W 17:11 → SUATTDRO 06-01 12:00